=== PATIENT | female | born 1925 | race American Indian/Alaskan Native ===

== ENCOUNTER 2016-11-29 21:09 | Emergency (ER) | payer MEDICARE ==
[2016-11-29] MEDS ORDERED: NACL 0.9% 1000 ML 1,000 ML IV ONE (21:28)
[2016-11-29 21:53] LABS: Basophils % (Auto) 0.8 % (0.0-1.8); Eosinophils % (Auto) 0.3 % (0.0-4.3); Hematocrit 41.7 % (30.3-42.9); Hemoglobin 14.4 gm/dl (10.1-14.3); Mean Corpuscular HGB Conc 35 % (30-34); Mean Corpuscular Hemoglobin 34 pg (28-32); Mean Corpuscular Volume 98 fl (79-97); Red Blood Count 4.27 M/mm3 (3.65-5.03); Red Cell Distribution Width 13.9 % (13.2-15.2); White Blood Count 10.9 K/mm3 (4.5-11.0)
[2016-11-29 21:56] LABS: Platelet Count 186 K/mm3 (140-440)
[2016-11-29] MEDS ORDERED: GEODON IM PRN (21:57)
--- NOTE | 2016-11-29 21:58 | Emergency Department Report ---
ED General Adult HPI - General Chief complaint: GI Bleed Stated complaint: POSSIBLE GI BLEED Time Seen by Provider: 11/29/16 21:30 Source: EMS (ems notes not available at time of chart dictation), old records reviewed Mode of arrival: Stretcher Limitations: Physical Limitation, Other (patient is demented. Poor historian.) - History of Present Illness Initial comments: This is an 89-year-old female. She is previously unknown to me. Past medical history includes hypertension, dementia, PEG tube placement with GERD. He presents to the ER from a local intermediate with the complaint of vomiting dark coffee ground emesis. No further documentation is noted. Patient is currently a full code. Patient demented, poor historian, cannot describe exacerbating or erythema factors. Patient nonverbal, groans incomprehensibly. -: Sudden Quality: other (per hpi) Consistency: other (per hpi) Improves with: other (per hpi) Worsens with: other (per hpi) Associated Symptoms: other (per hpi) - Related Data Home Medications Medication Instructions Recorded Confirmed Last Taken Divalproex [Beth Rueda] 125 mg FEEDTUBE BID 08/22/14 10/02/14 10/02/14 Docusate Sodium [Colace ORAL LIQ] 50 mg FEEDTUBE DAILY 08/22/14 10/02/14 Donepezil [Aricept] 10 mg FEEDTUBE QPM 08/22/14 10/02/14 10/02/14 Lovastatin [Altoprev] 20 mg FEEDTUBE QPM 08/22/14 10/02/14 10/01/14 Memantine Xr [Namenda Xr] 14 mg FEEDTUBE DAILY 08/22/14 10/02/14 10/02/14 Multivit &Minerals/Ferrous Fum 9 mg FEEDTUBE DAILY 08/22/14 10/02/14 10/02/14 [Multivitamin Liquid] Omeprazole [PriLOSEC] 20 mg FEEDTUBE QDAY 08/22/14 10/02/14 10/02/14 Potassium Chloride [KCl 20 meq 20 meq FEEDTUBE QDAY 08/22/14 10/02/14 10/02/14 ORAL LIQ] Travoprost [Travatan Z 0.004%] 1 drop INTRAOCULA QHS 08/22/14 10/02/14 10/02/14 Triamter/Hctz 37.5-25 mg 1 tab FEEDTUBE QDAY 08/22/14 10/02/14 10/02/14 [Maxzide-25] Verapamil [Calan] 120 mg FEEDTUBE BID 08/22/14 10/02/14 10/02/14 Vit C/Ascorbate Ca/Ascorb Sod 500 mg FEEDTUBE BID 08/22/14 10/02/14 10/02/14 [Vitamin C 500 mg/15 ml Liquid] Allergies Allergy/AdvReac Type Severity Reaction Status Date / Time No Known Allergies Allergy Verified 08/22/14 21:22 ED Review of Systems ROS: Stated complaint: POSSIBLE GI BLEED Other details as noted in HPI Comment: Unobtainable due to pts medical conditions ED Past Medical Hx - Past Medical History Previous Medical History?: Yes Hx Hypertension: Yes Hx Diabetes: No Hx GERD: Yes Hx Dementia: Yes Hx HIV: No Additional medical history: dysphagia, Alz.,hypokalemia, glaucoma. pressure ulcer left foot. aphasia - Surgical History Past Surgical History?: Yes Additional Surgical History: PEG - Social History Smoking Status: Unknown if ever smoked - Medications Home Medications: Home Medications Medication Instructions Recorded Confirmed Last Taken Type Divalproex [Beth Rueda] 125 mg FEEDTUBE BID 08/22/14 10/02/14 10/02/14 History Docusate Sodium [Colace ORAL LIQ] 50 mg FEEDTUBE DAILY 08/22/14 10/02/14 History Donepezil [Aricept] 10 mg FEEDTUBE QPM 08/22/14 10/02/14 10/02/14 History Lovastatin [Altoprev] 20 mg FEEDTUBE QPM 08/22/14 10/02/14 10/01/14 History Memantine Xr [Namenda Xr] 14 mg FEEDTUBE DAILY 08/22/14 10/02/14 10/02/14 History Multivit &Minerals/Ferrous Fum 9 mg FEEDTUBE DAILY 08/22/14 10/02/14 10/02/14 History [Multivitamin Liquid] Omeprazole [PriLOSEC] 20 mg FEEDTUBE QDAY 08/22/14 10/02/14 10/02/14 History Potassium Chloride [KCl 20 meq 20 meq FEEDTUBE QDAY 08/22/14 10/02/14 10/02/14 History ORAL LIQ] Travoprost [Travatan Z 0.004%] 1 drop INTRAOCULA QHS 08/22/14 10/02/14 10/02/14 History Triamter/Hctz 37.5-25 mg 1 tab FEEDTUBE QDAY 08/22/14 10/02/14 10/02/14 History [Maxzide-25] Verapamil [Calan] 120 mg FEEDTUBE BID 08/22/14 10/02/14 10/02/14 History Vit C/Ascorbate Ca/Ascorb Sod 500 mg FEEDTUBE BID 08/22/14 10/02/14 10/02/14 History [Vitamin C 500 mg/15 ml Liquid] ED Physical Exam - General Limitations: Altered Mental Status, Physical Limitation General appearance: in no apparent distress, obese - Head Head exam: Present: atraumatic, normocephalic - Eye Eye exam: Present: normal appearance - ENT ENT exam: Present: normal exam, normal orophraynx, mucous membranes moist, normal external ear exam - Neck Neck exam: Present: normal inspection, full ROM. Absent: tenderness, meningismus - Respiratory Respiratory exam: Present: normal lung sounds bilaterally. Absent: respiratory distress, wheezes, rales, rhonchi, stridor, chest wall tenderness - Cardiovascular Cardiovascular Exam: Present: normal rhythm, tachycardia, normal heart sounds. Absent: systolic murmur, diastolic murmur, rubs, gallop - GI/Abdominal GI/Abdominal exam: Present: soft, normal bowel sounds, other (his feeding tube noted in the left upper quadrant. No redness, pus or streaking). Absent: distended, tenderness, guarding, rebound, rigid, pulsatile mass - Rectal Rectal exam: Present: normal inspection, normal rectal tone, heme (-) stool, other (minimal skin breakdown.) - Extremities Exam Extremities exam: Present: pedal edema, other (chronic wound noted to left heel) . Absent: normal inspection (contraction noted in left lower extremity) - Back Exam Back exam: Present: normal inspection. Absent: tenderness - Neurological Exam Neurological exam: Present: other (patient demented, poor historian) - Psychiatric Psychiatric exam: Present: normal affect, normal mood - Skin Skin exam: Present: warm, dry, intact, normal color. Absent: rash ED Course Vital Signs 11/29/16 11/29/16 11/29/16 21:17 21:19 21:21 Temperature 98.8 F Pulse Rate 115 H 114 H 110 H Respiratory 14 18 15 Rate Blood Pressure 111/54 Blood Pressure [Right] O2 Sat by Pulse 96 96 93 Oximetry 11/29/16 11/29/16 11/29/16 21:28 21:31 21:40 Temperature Pulse Rate 116 H 118 H Respiratory 17 24 Rate Blood Pressure 111/54 135/81 Blood Pressure 111/54 [Right] O2 Sat by Pulse 94 97 Oximetry 11/29/16 11/29/16 11/29/16 21:51 22:00 22:11 Temperature Pulse Rate 110 H 114 H 109 H Respiratory 17 19 15 Rate Blood Pressure 138/84 138/98 138/98 Blood Pressure [Right] O2 Sat by Pulse 94 96 96 Oximetry 11/29/16 11/29/16 11/29/16 22:21 22:30 22:41 Temperature Pulse Rate 118 H 113 H 105 H Respiratory 17 20 19 Rate Blood Pressure 137/77 146/79 146/79 Blood Pressure [Right] O2 Sat by Pulse 96 95 95 Oximetry 11/29/16 11/29/16 11/29/16 22:51 23:00 23:11 Temperature Pulse Rate 109 H 104 H 110 H Respiratory 18 17 21 Rate Blood Pressure 155/79 119/63 119/63 Blood Pressure [Right] O2 Sat by Pulse 97 93 96 Oximetry 11/29/16 11/30/16 11/30/16 23:21 00:00 00:11 Temperature Pulse Rate 107 H 101 H 100 H Respiratory 31 H 16 19 Rate Blood Pressure 157/82 151/85 151/85 Blood Pressure [Right] O2 Sat by Pulse 96 97 97 Oximetry 11/30/16 00:21 Temperature Pulse Rate 99 H Respiratory 17 Rate Blood Pressure 108/66 Blood Pressure [Right] O2 Sat by Pulse 96 Oximetry - Reevaluation(s) Reevaluation #1: 11/29/16 23:24 Differential diagnosis: Urinary tract infection, upper GI bleed, nonspecific nausea and vomiting, pneumonia Assessment and plan: Nonverbal elderly female with report of coffee-ground emesis. She is afebrile with unremarkable vital signs with the exception of slight tachycardia. There may be an anxiety component. Night exam and the patient anywhere, she yells nonsensically. She does this with the abdominal examination. Gastric occult blood is pending. Urinalysis not consistent with urinary tract infection. I doubt acute intra-abdominal disease, noncontrast CT scan of the abdomen and pelvis is pending. Reevaluation #2: 11/30/16 00:[address] scan negative. No active vomiting. Patient will be discharged, the percutaneous gastrostomy tube may be used for her typical feeds and medications, she can follow up with outpatient gastroenterology. Reevaluation #3: 11/30/16 00:50 No active vomiting. Tachycardia resolved. Gastric occult blood negative. Guaiac negative. Patient will be discharged. CT scan negative. ED Medical Decision Making - Lab Data Result diagrams: 11/29/16 21:40 11/29/16 21:40 - EKG Data 11/29/16 23:47 Sinus tachycardia, 105 bpm, atrial enlargement, poor progression, abnormal EKG, not morphologically consistent with STEMI. Normal axis. - Radiology Data Radiology results: report reviewed, image reviewed Noncontrast CAT scan the abdomen pelvis: Percutaneous gastrostomy tube in proper position. No evidence of bowel obstruction. No evidence of diverticulitis or colitis. No evidence of obstruction. appendix appears to be within normal limits. There is a nonspecific cyst or hemangioma noted in the right lobe of the liver. Critical care attestation.: If time is entered above; I have spent that time in minutes in the direct care of this critically ill patient, excluding procedure time. ED Disposition Clinical Impression: History of vomiting Disposition: DC/TX ANOTHER TYPE HEALTHCARE Is pt being admited?: No Does the pt Need Aspirin: No Condition: Stable Additional Instructions: Continue current outpatient medications. Follow up with a petroleum refinery operator or primary care doctor within the next week. Dr. Enrike Gonzalez is a local primary care doctor. Dr. Garcia is a local petroleum refinery operator. Return to the ER right away with fevers or chills, lethargy, irritability, projectile vomiting , change in mental status, inability to tolerate liquid feeds, bright red blood per rectum, hypotension/low blood pressure. Gastrostomy tube may be used for feeds and medication administration. Referrals: ENRIKE GONZALEZ MD [Primary Care Provider] - 3-5 Days SUSAN GARCIA MD [Staff Physician] - 3-5 Days Forms: Accompanied Note
[2016-11-29 22:01] LABS: INR 1.01 (0.87-1.13)
[2016-11-29 22:02] LABS: Partial Thromboplastin Time 20.6 Sec. (24.2-36.6)
[2016-11-29 22:13] LABS: Albumin 3.4 g/dL (3.9-5); Albumin/Globulin Ratio 0.8 %; BUN/Creatinine Ratio 13.63; Bilirubin,Total 0.3 mg/dL (0.1-1.2); Calcium 10.3 mg/dL (8.4-10.2); Chloride 97.5 mmol/L (98-107); Total Protein 7.9 g/dL (6.3-8.2)
[2016-11-29 22:25] LABS: Bacteria,Urine 1+ /HPF (Negative); Bilirubin,Urine NEG (Negative); Blood,Urine LG (Negative); Ketones,Urine NEG (Negative); Leukocyte Esterase,Urine TR (Negative); Mucus,Urine 1+ /HPF; Nitrite,Urine NEG (Negative); Protein,Urine <15 mg/dL mg/dL (Negative); RBC,Urine > 182.0 /HPF (0.0-6.0); Urobilinogen,Urine < 2.0 mg/dL (<2.0)
--- NOTE | 2016-11-29 23:57 | Cat Scan Report ---
FINAL REPORT PROCEDURE: CT ABDOMEN PELVIS WO CON TECHNIQUE: Computerized axial tomography of the abdomen and pelvis was performed without intravenous contrast. This study is performed without intravascular contrast material and its sensitivity for abdominal and pelvic pathology, including neoplasms, inflammation, abscess, free fluid, thrombosis, arterial dissection and infarction, is reduced compared with a contrast enhanced study. HISTORY: N/V COMPARISON: No prior studies are available for comparison. FINDINGS: Visualized lower thorax: No significant abnormality. Liver: There is a 12 millimeter cyst or hemangioma in the right lobe of the liver.. Spleen: Normal size and attenuation. Gallbladder and biliary system: There is sludge in the gallbladder.. Pancreas: Normal. Adrenals: Normal. Kidneys: There is no nephrolithiasis or obstructive uropathy.. GI tract: There is a percutaneous gastrostomy tube in proper position. There is no stomach or small bowel obstruction. There are diverticula of the colon. There is no diverticulitis or colitis. There is no colonic obstruction or mass. The appendix is normal.. Lymph nodes and mesentery: Normal. Vasculature: Normal. Bladder: Normal. Reproductive organs: There has been a hysterectomy.. Peritoneum: There is no ascites or free air, abscess or adenopathy.. Musculoskeletal structures: No significant abnormality. Other: None. IMPRESSION: There is a percutaneous gastrostomy tube in proper position. There is no stomach or small bowel obstruction. There are diverticula of the colon. There is no diverticulitis or colitis. There is no colonic obstruction or mass. The appendix is normal.. There has been a hysterectomy.. There is no ascites or free air, abscess or adenopathy. .
[2016-11-30 00:56] VITALS: BP 129/62
== END 2016-11-30 00:45 | disposition other institution (70) ==
LOC: ED 21:09
DX: R11.10 Vomiting, unspecified (principal); I10 Essential (primary) hypertension; K21.9 Gastro-esophageal reflux disease without esophagitis; F03.90 Unspecified dementia, unspecified severity, without behavioral disturbance, psychotic disturbance, mood disturbance, and anxiety; E87.6 Hypokalemia; H40.9 Unspecified glaucoma; Z90.710 Acquired absence of both cervix and uterus; R10.2 Pelvic and perineal pain
CPT/HCPCS: 36415; 51701; 74176; 80053; 81001; 82271; 83690; 85025; 85610; 85730; 86850; 86900; 86901; 87086; 93005; 93010; 96360; 96361; 96372; 99285; J3486; J7030

== ENCOUNTER 2017-02-26 12:52 | Emergency (ER) | payer MEDICARE ==
[2017-02-26] MEDS ORDERED: NACL 0.9% 500 ML 500 ML IV ONE (13:00)
[2017-02-26 13:34] LABS: Basophils % (Auto) 0.7 % (0.0-1.8); Eosinophils % (Auto) 2.4 % (0.0-4.3); Hematocrit 45.5 % (30.3-42.9); Hemoglobin 14.6 gm/dl (10.1-14.3); Mean Corpuscular HGB Conc 32 % (30-34); Mean Corpuscular Hemoglobin 32 pg (28-32); Mean Corpuscular Volume 98 fl (79-97); Platelet Count 231 K/mm3 (140-440); Red Blood Count 4.65 M/mm3 (3.65-5.03); Red Cell Distribution Width 14.1 % (13.2-15.2); White Blood Count 9.2 K/mm3 (4.5-11.0)
--- NOTE | 2017-02-26 13:50 | XRay Report ---
AP CHEST: HISTORY: Sepsis AP view of the chest demonstrates a normal mediastinal and cardiac contour with clear lungs and normal bony and soft tissue structures. IMPRESSION: Unremarkable AP chest.
[2017-02-26 14:00] LABS: Alanine Aminotransferase 19 units/L (7-56); Albumin 3.7 g/dL (3.9-5); Albumin/Globulin Ratio 0.8 %; Alkaline Phosphatase 110 units/L (35-129); BUN/Creatinine Ratio 26.25; Blood Urea Nitrogen 21 mg/dL (7-17); Calcium 10.6 mg/dL (8.4-10.2); Carbon Dioxide 28 mmol/L (22-30); Glucose 149 mg/dL (65-100); Total Protein 8.5 g/dL (6.3-8.2)
[2017-02-26 14:01] LABS: Anion Gap 19 mmol/L; Chloride 101.6 mmol/L (98-107); INR 1.07 (0.87-1.13); Sodium 145 mmol/L (137-145)
[2017-02-26] MEDS ORDERED: NACL ONE (16:39)
--- NOTE | 2017-02-26 17:41 | Cat Scan Report ---
FINAL REPORT EXAM: CT ABDOMEN PELVIS W CON HISTORY: vomiting, peg, coffe ground TECHNIQUE: CT of the abdomen and pelvis with intravenous contrast PRIORS: Comparison is dated November 29, 2016 FINDINGS: No acute abnormality is identified in the and visualized portion of the lung bases. A 1.3 centimeter low-density focus within right lobe of the liver is unchanged probable cyst or hemangioma. Gallbladder is nondistended. The spleen is normal in size and attenuation Again identified is a PEG tube. Distal end within the body of the stomach. No evidence for gastric distention. No evidence for small bowel or colonic distention. Numerous diverticula are present descending and sigmoid colon. No evidence for acute diverticulitis. Urinary bladder is unremarkable. IMPRESSION: PEG tube within the stomach. No evidence for gastric distention or small bowel obstruction Colonic diverticular disease. No evidence for acute diverticulitis Small low-density focus within the liver probable cyst or hemangioma
[2017-02-26 18:23] LABS: Bilirubin,Urine NEG (Negative); Blood,Urine NEG (Negative); Ketones,Urine NEG (Negative); Leukocyte Esterase,Urine NEG (Negative); Mucus,Urine FEW /HPF; Nitrite,Urine NEG (Negative); Urobilinogen,Urine < 2.0 mg/dL (<2.0)
--- NOTE | 2017-02-26 19:25 | Emergency Department Report ---
ED GI Bleed HPI - General Chief complaint: GI Bleed Stated complaint: EMESIS/POSS BLOOD Time Seen by Provider: 02/26/17 14:03 Source: EMS Mode of arrival: Stretcher Limitations: Other - History of Present Illness Initial comments: 89 yo female with a past medical history dementia, dysphagia requiring PEG placement, and hypertension presents to the hospital with coffee ground emesis from [facility]. Son at bedside and states this is patient's baseline mental status. Patient is nonverbal and unable to follow commands. No vomiting since arrival to the ED. Patient does not take anything by mouth intake all medication and liquids via PEG. Severity scale (0 -10): 0 - Related Data Home Medications Medication Instructions Recorded Confirmed Last Taken Divalproex Dr [Depakotrip Dr] 125 mg FEEDTUBE BID 08/22/14 10/02/14 10/02/14 Donepezil [Aricept] 10 mg FEEDTUBE QPM 08/22/14 10/02/14 10/02/14 Lovastatin [Altoprev] 20 mg FEEDTUBE QPM 08/22/14 10/02/14 10/01/14 Memantine Xr [Namenda Xr] 14 mg FEEDTUBE DAILY 08/22/14 10/02/14 10/02/14 Multivit &Minerals/Ferrous Fum 9 mg FEEDTUBE DAILY 08/22/14 10/02/14 10/02/14 [Multivitamin Liquid] Omeprazole [PriLOSEC] 20 mg FEEDTUBE QDAY 08/22/14 10/02/14 10/02/14 Potassium Chloride [KCl 20 meq 20 meq FEEDTUBE QDAY 08/22/14 10/02/14 10/02/14 ORAL LIQ] Verapamil [Calan] 120 mg FEEDTUBE BID 08/22/14 10/02/14 10/02/14 Vit C/Ascorbate Ca/Ascorb Sod 500 mg FEEDTUBE BID 08/22/14 10/02/14 10/02/14 [Vitamin C 500 mg/15 ml Liquid] Acetaminophen [Acetaminophen TAB] 2 tab FEEDTUBE Q8H PRN MDD 3000MG 02/26/1709/02 Unknown Hyoscyamine Subl [Levsin Sl 0.125 2 tab PO Q6H 02/26/17 02/26/17 Unknown TAB] Loperamide [Imodium] 2 mg PO PRN PRN MDD 4 capsules 02/26/17 02/26/17 Unknown Sennosides [Senna] 2 tab FEEDTUBE Q12H 02/26/17 02/26/17 Unknown Sodium Chloride [Sodium Chloride] 1 gm FEEDTUBE BID 02/26/17 02/26/17 Unknown Valproic Acid (As Sodium Salt) 125 mg FEEDTUBE BID 02/26/17 02/26/17 Unknown [Valproic Acid] Verapamil [Calan] 120 mg FEEDTUBE BID 02/26/17 02/26/17 Unknown clonazePAM [KlonoPIN] 0.25 mg PO BID 02/26/17 02/26/17 Unknown fentaNYL [Fentanyl] 1 patch TRANSDERMA Q72H 02/26/17 02/26/17 Unknown Previous Rx's Medication Instructions Recorded Last Taken Type Ondansetron [Zofran Oral Liq] 4 mg PERCUTANEO Q6HR PRN #20 dose 02/26/17 Unknown Rx Allergies Allergy/AdvReac Type Severity Reaction Status Date / Time No Known Allergies Allergy Verified 08/22/14 21:22 ED Review of Systems ROS: Stated complaint: EMESIS/POSS BLOOD Other details as noted in HPI Comment: Unobtainable due to pts medical conditions (nonverbal) ED Past Medical Hx - Past Medical History Hx Hypertension: Yes Hx Diabetes: No Hx GERD: Yes Hx Psychiatric Treatment: Yes (alzheimers, dementia, major depressive d/o) Hx Dementia: Yes Hx HIV: No Additional medical history: dysphagia, Alz.,hypokalemia, glaucoma. pressure ulcer left foot. aphasia, GERD, hyperlipidemia, contracture of the knee, constipation - Surgical History Additional Surgical History: PEG - Social History Smoking Status: Unknown if ever smoked - Medications Home Medications: Home Medications Medication Instructions Recorded Confirmed Last Taken Type Divalproex Dr [Depakote Dr] 125 mg FEEDTUBE BID 08/22/14 10/02/14 10/02/14 History Donepezil [Aricept] 10 mg FEEDTUBE QPM 08/22/14 10/02/14 10/02/14 History Lovastatin [Altoprev] 20 mg FEEDTUBE QPM 08/22/14 10/02/14 10/01/14 History Memantine Xr [Namenda Xr] 14 mg FEEDTUBE DAILY 08/22/14 10/02/14 10/02/14 History Multivit &Minerals/Ferrous Fum 9 mg FEEDTUBE DAILY 08/22/14 10/02/14 10/02/14 History [Multivitamin Liquid] Omeprazole [PriLOSEC] 20 mg FEEDTUBE QDAY 08/22/14 10/02/14 10/02/14 History Potassium Chloride [KCl 20 meq 20 meq FEEDTUBE QDAY 08/22/14 10/02/14 10/02/14 History ORAL LIQ] Verapamil [Calan] 120 mg FEEDTUBE BID 08/22/14 10/02/14 10/02/14 History Vit C/Ascorbate Ca/Ascorb Sod 500 mg FEEDTUBE BID 08/22/14 10/02/14 10/02/14 History [Vitamin C 500 mg/15 ml Liquid] Acetaminophen [Acetaminophen TAB] 2 tab FEEDTUBE Q8H PRN MDD 3000MG 02/26/1709/02 Unknown History Hyoscyamine Subl [Levsin Sl 0.125 2 tab PO Q6H 02/26/17 02/26/17 Unknown History TAB] Loperamide [Imodium] 2 mg PO PRN PRN MDD 4 capsules 02/26/17 02/26/17 Unknown History Ondansetron [Zofran Oral Liq] 4 mg PERCUTANEO Q6HR PRN #20 dose 02/26/17 Unknown Rx Sennosides [Senna] 2 tab FEEDTUBE Q12H 02/26/17 02/26/17 Unknown History Sodium Chloride [Sodium Chloride] 1 gm FEEDTUBE BID 02/26/17 02/26/17 Unknown History Valproic Acid (As Sodium Salt) 125 mg FEEDTUBE BID 02/26/17 02/26/17 Unknown History [Valproic Acid] Verapamil [Calan] 120 mg FEEDTUBE BID 02/26/17 02/26/17 Unknown History clonazePAM [KlonoPIN] 0.25 mg PO BID 02/26/17 02/26/17 Unknown History fentaNYL [Fentanyl] 1 patch TRANSDERMA Q72H 02/26/17 02/26/17 Unknown History ED Physical Exam - General Limitations: Other - Other Other exam information: General: Limited by chronic baseline mental status/dementia Head exam: Atraumatic Eyes exam: Normal appearance ENT: Moist mucous membrane Neck exam: Normal inspection Respiratory exam: Bilateral rhonchi Cardiovascular: Normal rate and rhythm Abdomen: Soft, nondistended, positive headache upper quadrant Rectal: Brown stool guaiac negative Extremity: Full range of motion normal inspection no deformity Back: Normal Inspection, full range of motion, no tenderness Neurologic: Opens eyes to stimulation, incomprehensible sounds, limited movement of all extremities ED Course Vital Signs 02/26/17 02/26/17 02/26/17 13:26 13:30 13:34 Pulse Rate Respiratory 20 Rate Blood Pressure 156/75 Blood Pressure [Left] O2 Sat by Pulse 98 99 Oximetry 02/26/17 02/26/17 02/26/17 14:00 14:30 15:00 Pulse Rate Respiratory Rate Blood Pressure 163/60 156/53 148/63 Blood Pressure [Left] O2 Sat by Pulse 100 97 100 Oximetry 02/26/17 15:30 Pulse Rate 100 H Respiratory 20 Rate Blood Pressure 152/73 Blood Pressure 152/73 [Left] O2 Sat by Pulse 95 Oximetry - Reevaluation(s) Reevaluation #1: 02/26/17 19:46 Patient received 500 mL normal saline 02/26/17 19:47 Zofran ordered prior to discharge/disposition. No vomiting in the ED 02/26/17 19:47 ED Medical Decision Making - Lab Data Result diagrams: 02/26/17 13:10 02/26/17 13:10 Lab Results 02/26/17 02/26/17 02/26/17 Range/Units 13:10 13:10 13:10 WBC 9.2 (4.5-11.0) K/mm3 RBC 4.65 (3.65-5.03) M/mm3 Hgb 14.6 H (10.1-14.3) gm/dl Hct 45.5 H (30.3-42.9) % MCV 98 H (79-97) fl MCH 32 (28-32) pg MCHC 32 (30-34) % RDW 14.1 (13.2-15.2) % Plt Count 231 (140-440) K/mm3 Lymph % (Auto) 19.6 (13.4-35.0) % Dawes % (Auto) 5.1 (0.0-7.3) % Eos % (Auto) 2.4 (0.0-4.3) % Baso % (Auto) 0.7 (0.0-1.8) % Lymph # 1.8 (1.2-5.4) K/mm3 Dawes # 0.5 (0.0-0.8) K/mm3 Eos # 0.2 (0.0-0.4) K/mm3 Baso # 0.1 (0.0-0.1) K/mm3 Seg Neutrophils % 72.2 H (40.0-70.0) % Seg Neutrophils # 6.6 (1.8-7.7) K/mm3 PT 13.8 (12.2-14.9) Sec. INR 1.07 (0.87-1.13) VBG pH (7.320-7.420) Sodium 145 (137-145) mmol/L Potassium 4.0 (3.6-5.0) mmol/L Chloride 101.6 (98-107) mmol/L Carbon Dioxide 28 (22-30) mmol/L Anion Gap 19 mmol/L BUN 21 H (7-17) mg/dL Creatinine 0.8 (0.7-1.2) mg/dL Estimated GFR > 60 ml/min BUN/Creatinine Ratio 26.25 % Glucose 149 H (65-100) mg/dL Lactic Acid (0.7-2.0) mmol/L Calcium 10.6 H (8.4-10.2) mg/dL Total Bilirubin 0.30 (0.1-1.2) mg/dL AST 38 (5-40) units/L ALT 19 (7-56) units/L Alkaline Phosphatase 110 (35-129) units/L Total Protein 8.5 H (6.3-8.2) g/dL Albumin 3.7 L (3.9-5) g/dL Albumin/Globulin Ratio 0.8 % Urine Color (Yellow) Urine Turbidity (Clear) Urine pH (5.0-7.0) Ur Specific [place] (1.003-1.030) Urine Protein (Negative) mg/dL Urine Glucose (UA) (Negative) mg/dL Urine Ketones (Negative) mg/dL Urine Blood (Negative) Urine Nitrite (Negative) Urine Bilirubin (Negative) Urine Urobilinogen (<2.0) mg/dL Ur Leukocyte Esterase (Negative) Urine WBC (Auto) (0.0-6.0) /HPF Urine RBC (Auto) (0.0-6.0) /HPF U Epithel Cells (Auto) (0-13.0) /HPF Urine Mucus /HPF 02/26/17 02/26/17 02/26/17 Range/Units 13:10 13:10 15:48 WBC (4.5-11.0) K/mm3 RBC (3.65-5.03) M/mm3 Hgb (10.1-14.3) gm/dl Hct (30.3-42.9) % MCV (79-97) fl MCH (28-32) pg MCHC (30-34) % RDW (13.2-15.2) % Plt Count (140-440) K/mm3 Lymph % (Auto) (13.4-35.0) % Dawes % (Auto) (0.0-7.3) % Eos % (Auto) (0.0-4.3) % Baso % (Auto) (0.0-1.8) % Lymph # (1.2-5.4) K/mm3 Dawes # (0.0-0.8) K/mm3 Eos # (0.0-0.4) K/mm3 Baso # (0.0-0.1) K/mm3 Seg Neutrophils % (40.0-70.0) % Seg Neutrophils # (1.8-7.7) K/mm3 PT (12.2-14.9) Sec. INR (0.87-1.13) VBG pH 7.405 (7.320-7.420) Sodium (137-145) mmol/L Potassium (3.6-5.0) mmol/L Chloride (98-107) mmol/L Carbon Dioxide (22-30) mmol/L Anion Gap mmol/L BUN (7-17) mg/dL Creatinine (0.7-1.2) mg/dL Estimated GFR ml/min BUN/Creatinine Ratio % Glucose (65-100) mg/dL Lactic Acid 2.40 H* 2.00 (0.7-2.0) mmol/L Calcium (8.4-10.2) mg/dL Total Bilirubin (0.1-1.2) mg/dL AST (5-40) units/L ALT (7-56) units/L Alkaline Phosphatase (35-129) units/L Total Protein (6.3-8.2) g/dL Albumin (3.9-5) g/dL Albumin/Globulin Ratio % Urine Color (Yellow) Urine Turbidity (Clear) Urine pH (5.0-7.0) Ur Specific [place] (1.003-1.030) Urine Protein (Negative) mg/dL Urine Glucose (UA) (Negative) mg/dL Urine Ketones (Negative) mg/dL Urine Blood (Negative) Urine Nitrite (Negative) Urine Bilirubin (Negative) Urine Urobilinogen (<2.0) mg/dL Ur Leukocyte Esterase (Negative) Urine WBC (Auto) (0.0-6.0) /HPF Urine RBC (Auto) (0.0-6.0) /HPF U Epithel Cells (Auto) (0-13.0) /HPF Urine Mucus /HPF /09/02 Range/Units 18:08 WBC (4.5-11.0) K/mm3 RBC (3.65-5.03) M/mm3 Hgb (10.1-14.3) gm/dl Hct (30.3-42.9) % MCV (79-97) fl MCH (28-32) pg MCHC (30-34) % RDW (13.2-15.2) % Plt Count (140-440) K/mm3 Lymph % (Auto) (13.4-35.0) % Dawes % (Auto) (0.0-7.3) % Eos % (Auto) (0.0-4.3) % Baso % (Auto) (0.0-1.8) % Lymph # (1.2-5.4) K/mm3 Dawes # (0.0-0.8) K/mm3 Eos # (0.0-0.4) K/mm3 Baso # (0.0-0.1) K/mm3 Seg Neutrophils % (40.0-70.0) % Seg Neutrophils # (1.8-7.7) K/mm3 PT (12.2-14.9) Sec. INR (0.87-1.13) VBG pH (7.320-7.420) Sodium (137-145) mmol/L Potassium (3.6-5.0) mmol/L Chloride (98-107) mmol/L Carbon Dioxide (22-30) mmol/L Anion Gap mmol/L BUN (7-17) mg/dL Creatinine (0.7-1.2) mg/dL Estimated GFR ml/min BUN/Creatinine Ratio % Glucose (65-100) mg/dL Lactic Acid (0.7-2.0) mmol/L Calcium (8.4-10.2) mg/dL Total Bilirubin (0.1-1.2) mg/dL AST (5-40) units/L ALT (7-56) units/L Alkaline Phosphatase (35-129) units/L Total Protein (6.3-8.2) g/dL Albumin (3.9-5) g/dL Albumin/Globulin Ratio % Urine Color Yellow (Yellow) Urine Turbidity Clear (Clear) Urine pH 7.0 (5.0-7.0) Ur Specific [place] 1.025 (1.003-1.030) Urine Protein 100 mg/dl (Negative) mg/dL Urine Glucose (UA) Neg (Negative) mg/dL Urine Ketones Neg (Negative) mg/dL Urine Blood Neg (Negative) Urine Nitrite Neg (Negative) Urine Bilirubin Neg (Negative) Urine Urobilinogen < 2.0 (<2.0) mg/dL Ur Leukocyte Esterase Neg (Negative) Urine WBC (Auto) 1.0 (0.0-6.0) /HPF Urine RBC (Auto) 3.0 (0.0-6.0) /HPF U Epithel Cells (Auto) 2.0 (0-13.0) /HPF Urine Mucus Few /HPF - EKG Data -: EKG Interpreted by Me (nsr rate 97, no stemi) - Radiology Data Radiology results: report reviewed CT abdomen and pelvis IV contrast: PEG tube in stomach. No evidence a gastric destruction or small bowel obstruction. Colonic diverticular disease. No acute diverticulitis. Probable liver cyst versus hemangioma Chest x-ray: Unremarkable AP chest - Medical Decision Making No signs of acute abnormality identified. Patient has not had any vomiting in the ED. Patient will be discharged home. - Differential Diagnosis gastritis, obstruction, PUD, GI bleed, infection, UTI, diverticulitis Critical Care Time: No Critical care attestation.: If time is entered above; I have spent that time in minutes in the direct care of this critically ill patient, excluding procedure time. ED Disposition Clinical Impression: Vomiting, Dementia, S/P percutaneous endoscopic gastrostomy (PEG) tube placement Disposition: DC-01 TO HOME OR SELFCARE Is pt being admited?: No Does the pt Need Aspirin: No Condition: Stable Instructions: Acute Nausea and Vomiting (ED) Additional Instructions: Use Zofran as needed for nausea vomiting. Return if symptoms worsen. Prescriptions: Ondansetron [Zofran Oral Liq] 4 mg PERCUTANEO Q6HR PRN #20 dose PRN Reason: Nausea And Vomiting Referrals: PRIMARY CAREMD [Primary Care Provider] - 3-5 Days KIEL DEY MD [Staff Physician] - 3-5 Days (GI ) Forms: Accompanied Note Time of Disposition: 19:43
[2017-02-26] MEDS ORDERED: ZOFRAN IV ONE (19:46)
[2017-02-26 23:28] VITALS: BP 165/72
== END 2017-02-26 23:40 | disposition home or self-care (01) ==
LOC: ED 12:52
DX: F03.90 Unspecified dementia, unspecified severity, without behavioral disturbance, psychotic disturbance, mood disturbance, and anxiety (principal); R11.10 Vomiting, unspecified; R10.30 Lower abdominal pain, unspecified; I10 Essential (primary) hypertension; K21.9 Gastro-esophageal reflux disease without esophagitis; E78.00 Pure hypercholesterolemia, unspecified; Z93.1 Gastrostomy status
CPT/HCPCS: 36415; 71010; 74177; 80053; 81001; 82140; 82271; 82805; 85025; 85610; 87040; 87086; 93005; 93010; 96374; 99285; J2405; J7040; Q9967

== ENCOUNTER 2017-06-17 22:09 | Emergency (ER) | payer MEDICARE ==
--- NOTE | 2017-06-17 22:58 | XRay Report ---
FINAL REPORT PROCEDURE: XR CHEST 1V AP TECHNIQUE: Chest radiograph anteroposterior view. CPT 68653 HISTORY: sob, congestion COMPARISON: No prior studies are available for comparison. FINDINGS: Heart: Normal. Mediastinum/Vessels: Normal. Lungs/Pleural space: Normal. Bony thorax: No acute osseous abnormality. Life support devices: None. IMPRESSION: No acute cardiopulmonary abnormality.
[2017-06-17 23:30] LABS: ISTAT Base Excess 7; ISTAT HCO3 31.3; ISTAT PCO2 46.8 (35-45); ISTAT PH 7.433 (7.35-7.45); ISTAT PO2 58 (80-105); ISTAT SO2 90; ISTAT TCO2 33
[2017-06-17 23:37] LABS: Basophils % (Auto) 1.2 % (0.0-1.8); Eosinophils % (Auto) 0.8 % (0.0-4.3); Hematocrit 36.7 % (30.3-42.9); Hemoglobin 12.3 gm/dl (10.1-14.3); Mean Corpuscular HGB Conc 33 % (30-34); Mean Corpuscular Hemoglobin 33 pg (28-32); Mean Corpuscular Volume 97 fl (79-97); Platelet Count 172 K/mm3 (140-440); Red Blood Count 3.77 M/mm3 (3.65-5.03); Red Cell Distribution Width 14.9 % (13.2-15.2); White Blood Count 10.2 K/mm3 (4.5-11.0)
[2017-06-17 23:44] LABS: Anion Gap 17 mmol/L; BUN/Creatinine Ratio 27.77; Blood Urea Nitrogen 25 mg/dL (7-17); Calcium 9.9 mg/dL (8.4-10.2); Carbon Dioxide 29 mmol/L (22-30); Chloride 97.1 mmol/L (98-107); Glucose 153 mg/dL (65-100); Potassium 3.7 mmol/L (3.6-5.0); Sodium 139 mmol/L (137-145)
--- NOTE | 2017-06-18 00:52 | Emergency Department Report ---
ED Shortness of Breath HPI - General Chief Complaint: Dyspnea/Respdistress Stated Complaint: CHEST CONGESTION Time Seen by Provider: 06/17/17 22:23 Source: EMS, old records reviewed Mode of arrival: Stretcher Limitations: Altered Mental Status, Physical Limitation - History of Present Illness Initial Comments: 89-year-old female with a past medical history Alzheimer's dementia, diabetes, GERD, hypertension, PEG tube placement, and chronic debility presents to the hospital with complaints of cough, chest congestion, and wet sounding lungs 1 day as per [facility] staff. No reports of fever. Due to patient's baseline mental status she is unable to provide history of present illness due to advanced dementia. shelter vitals included temperature 98.2. BP 135/80. Respiratory rate of 20, and pulse of 107. No other history of present illness available at this time. - Related Data Home Medications Medication Instructions Recorded Confirmed Last Taken Divalproex [Beth Rueda] 125 mg FEEDTUBE BID 08/22/14 05/17/17 10/02/14 Donepezil [Aricept] 10 mg FEEDTUBE QPM 08/22/14 05/17/17 10/02/14 Lovastatin [Altoprev] 20 mg FEEDTUBE QPM 08/22/14 05/17/17 10/01/14 Memantine Xr [Namenda Xr] 14 mg FEEDTUBE DAILY 08/22/14 05/17/17 10/02/14 Multivit &Minerals/Ferrous Fum 9 mg FEEDTUBE DAILY 08/22/14 05/17/17 10/02/14 [Multivitamin Liquid] Omeprazole [PriLOSEC] 20 mg FEEDTUBE QDAY 08/22/14 05/17/17 10/02/14 Vit C/Ascorbate Ca/Ascorb Sod 500 mg FEEDTUBE BID 08/22/14 05/17/17 10/02/14 [Vitamin C 500 mg/15 ml Liquid] Acetaminophen [Acetaminophen TAB] 2 tab FEEDTUBE Q8H PRN MDD 3000MG 02/26/17 Unknown Hyoscyamine Subl [Levsin Sl 0.125 2 tab PO Q6H 02/26/17 05/17/17 Unknown TAB] Loperamide [Imodium] 2 mg PO PRN PRN MDD 4 capsules 02/26/17 05/17/17 Unknown Sennosides [Senna] 2 tab FEEDTUBE Q12H 02/26/17 05/17/17 Unknown Sodium Chloride 1 gm FEEDTUBE BID 02/26/17 05/17/17 Unknown Valproic Acid (As Sodium Salt) 125 mg FEEDTUBE BID 02/26/17 05/17/17 Unknown [Valproic Acid] Verapamil [Calan] 120 mg FEEDTUBE BID 02/26/17 05/17/17 Unknown clonazePAM [KlonoPIN] 0.25 mg PO BID 02/26/17 05/17/17 Unknown fentaNYL [Fentanyl] 1 patch TRANSDERMA Q72H 02/26/17 05/17/17 Unknown Maxzide-25 37.5 mg FEEDTUBE DAILY 05/17/17 05/17/17 Unknown [place] 5-325 mg TAB 5 - 325 mg FEEDTUBE Q8HR 05/17/17 05/17/17 Unknown Scopolamine [Transderm-Scop] 1 each TD Q3D 05/17/17 05/17/17 Unknown Verapamil HCl [Verapamil ER] 120 mg PO BID 05/17/17 05/17/17 Unknown Previous Rx's Medication Instructions Recorded Last Taken Type Ondansetron [Zofran ORAL LIQ] 4 mg PERCUTANEO Q6HR PRN #20 dose 02/26/17 Unknown Rx Allergies Allergy/AdvReac Type Severity Reaction Status Date / Time No Known Allergies Allergy Verified 06/17/17 22:14 ED Review of Systems ROS: Stated complaint: CHEST CONGESTION Other details as noted in HPI Comment: Unobtainable due to pts medical conditions ED Past Medical Hx - Past Medical History Previous Medical History?: Yes Hx Hypertension: Yes Hx Diabetes: No Hx GERD: Yes Hx Psychiatric Treatment: Yes (alzheimers, dementia, major depressive d/o) Hx Dementia: Yes Hx HIV: No Additional medical history: dysphagia,hypokalemia, glaucoma. pressure ulcer left foot. aphasia, GERD, hyperlipidemia, contracture of the knee, constipation. recent pneumonia - Surgical History Past Surgical History?: Yes Additional Surgical History: PEG - Social History Smoking Status: Unknown if ever smoked Substance Use Type: None - Medications Home Medications: Home Medications Medication Instructions Recorded Confirmed Last Taken Type Divalproex Dr [Depakote Dr] 125 mg FEEDTUBE BID 08/22/14 05/17/17 10/02/14 History Donepezil [Aricept] 10 mg FEEDTUBE QPM 08/22/14 05/17/17 10/02/14 History Lovastatin [Altoprev] 20 mg FEEDTUBE QPM 08/22/14 05/17/17 10/01/14 History Memantine Xr [Namenda Xr] 14 mg FEEDTUBE DAILY 08/22/14 05/17/17 10/02/14 History Multivit &Minerals/Ferrous Fum 9 mg FEEDTUBE DAILY 08/22/14 05/17/17 10/02/14 History [Multivitamin Liquid] Omeprazole [PriLOSEC] 20 mg FEEDTUBE QDAY 08/22/14 05/17/17 10/02/14 History Vit C/Ascorbate Ca/Ascorb Sod 500 mg FEEDTUBE BID 08/22/14 05/17/17 10/02/14 History [Vitamin C 500 mg/15 ml Liquid] Acetaminophen [Acetaminophen TAB] 2 tab FEEDTUBE Q8H PRN MDD 3000MG 02/26/17 Unknown History Hyoscyamine Subl [Levsin Sl 0.125 2 tab PO Q6H 02/26/17 05/17/17 Unknown History TAB] Loperamide [Imodium] 2 mg PO PRN PRN MDD 4 capsules 02/26/17 05/17/17 Unknown History Ondansetron [Zofran ORAL LIQ] 4 mg PERCUTANEO Q6HR PRN #20 dose 02/26/17 Unknown Rx Sennosides [Senna] 2 tab FEEDTUBE Q12H 02/26/17 05/17/17 Unknown History Sodium Chloride 1 gm FEEDTUBE BID 02/26/17 05/17/17 Unknown History Valproic Acid (As Sodium Salt) 125 mg FEEDTUBE BID 02/26/17 05/17/17 Unknown History [Valproic Acid] Verapamil [Calan] 120 mg FEEDTUBE BID 02/26/17 05/17/17 Unknown History clonazePAM [KlonoPIN] 0.25 mg PO BID 02/26/17 05/17/17 Unknown History fentaNYL [Fentanyl] 1 patch TRANSDERMA Q72H 02/26/17 05/17/17 Unknown History Maxzide-25 37.5 mg FEEDTUBE DAILY 05/17/17 05/17/17 Unknown History [place] 5-325 mg TAB 5 - 325 mg FEEDTUBE Q8HR 05/17/17 05/17/17 Unknown History Scopolamine [Transderm-Scop] 1 each TD Q3D 05/17/17 05/17/17 Unknown History Verapamil HCl [Verapamil ER] 120 mg PO BID 05/17/17 05/17/17 Unknown History ED Physical Exam - General Limitations: Altered Mental Status, Physical Limitation - Other Other exam information: General: No acute distress Head exam: Atraumatic, normocephalic Eyes exam: Normal appearance ENT: Moist mucous membrane Neck exam: Normal inspection Respiratory exam: No tachypnea or accessory muscle use. Bilateral rhonchi Cardiovascular: Normal rate and rhythm Abdomen: Soft, nondistended, and nontender, with normal bowel sounds, no rebound, or guarding. Positive PEG tube previous lower abdomen surgical scars noted. Extremity: Contraction to all extremities Back: Normal Inspection Neurologic: Nonverbal, does not follow commands, does not make eye contact, positive spontaneous movement of extremities but limited secondary to contractures 10 Psychiatric: normal affect, normal mood Skin: Chronic left foot ulcer ED Course Vital Signs 06/17/17 06/17/17 06/17/17 22:30 22:45 22:46 Temperature 97.5 F L Pulse Rate 96 H 92 H 96 H Respiratory 16 19 20 Rate Blood Pressure 142/71 145/74 Blood Pressure 142/71 [Right] O2 Sat by Pulse 97 97 93 Oximetry 06/17/17 06/17/17 06/17/17 23:00 23:15 23:30 Temperature Pulse Rate 88 84 78 Respiratory 18 17 14 Rate Blood Pressure 141/69 155/68 144/57 Blood Pressure [Right] O2 Sat by Pulse 91 92 99 Oximetry 06/17/17 06/18/17 23:46 00:16 Temperature Pulse Rate 94 H 87 Respiratory 23 18 Rate Blood Pressure 164/65 165/80 Blood Pressure [Right] O2 Sat by Pulse 95 98 Oximetry - Reevaluation(s) Reevaluation #1: 06/18/17 00:53 Suction attempted however, minimal secretions obtained. - Consultations Consultation #1: 06/18/17 00:[address] Hooper physician for the [facility]. I informed him that only abnormality identified is this PO2 less than 60 and I recommended oxygen at the [facility]. Informed that no signs of fever, chest x-ray negative, patient in no acute distress. I suspect that patient has a lot of upper airway secretion causing audible sounds on auscultation. Patient will be sent back to the [facility] ED Medical Decision Making - Lab Data Result diagrams: 06/17/17 22:59 06/17/17 22:59 Lab Results 06/17/17 06/17/17 06/17/17 Range/Units 22:59 22:59 22:59 WBC 10.2 (4.5-11.0) K/mm3 RBC 3.77 (3.65-5.03) M/mm3 Hgb 12.3 (10.1-14.3) gm/dl Hct 36.7 (30.3-42.9) % MCV 97 (79-97) fl MCH 33 H (28-32) pg MCHC 33 (30-34) % RDW 14.9 (13.2-15.2) % Plt Count 172 (140-440) K/mm3 Lymph % (Auto) 19.0 (13.4-35.0) % [place] % (Auto) 8.2 H (0.0-7.3) % Eos % (Auto) 0.8 (0.0-4.3) % Baso % (Auto) 1.2 (0.0-1.8) % Lymph # 1.9 (1.2-5.4) K/mm3 [place] # 0.8 (0.0-0.8) K/mm3 Eos # 0.1 (0.0-0.4) K/mm3 Baso # 0.1 (0.0-0.1) K/mm3 Seg Neutrophils % 70.8 H (40.0-70.0) % Seg Neutrophils # 7.2 (1.8-7.7) K/mm3 POC ABG pH (7.35-7.45) POC ABG pCO2 (35-45) POC ABG pO2 (80-105) POC ABG HCO3 POC ABG Total CO2 POC ABG O2 Sat POC ABG Base Excess VBG pH (7.320-7.420) FiO2 % Sodium 139 (137-145) mmol/L Potassium 3.7 (3.6-5.0) mmol/L Chloride 97.1 L (98-107) mmol/L Carbon Dioxide 29 (22-30) mmol/L Anion Gap 17 mmol/L BUN 25 H (7-17) mg/dL Creatinine 0.9 (0.7-1.2) mg/dL Estimated GFR > 60 ml/min BUN/Creatinine Ratio 27.77 % Glucose 153 H (65-100) mg/dL Lactic Acid 1.80 (0.7-2.0) mmol/L Calcium 9.9 (8.4-10.2) mg/dL NT-Pro-B Natriuret Pep 765.0 (0-900) pg/mL 06/17/17 06/17/17 Range/Units 22:59 23:27 WBC (4.5-11.0) K/mm3 RBC (3.65-5.03) M/mm3 Hgb (10.1-14.3) gm/dl Hct (30.3-42.9) % MCV (79-97) fl MCH (28-32) pg MCHC (30-34) % RDW (13.2-15.2) % Plt Count (140-440) K/mm3 Lymph % (Auto) (13.4-35.0) % [place] % (Auto) (0.0-7.3) % Eos % (Auto) (0.0-4.3) % Baso % (Auto) (0.0-1.8) % Lymph # (1.2-5.4) K/mm3 [place] # (0.0-0.8) K/mm3 Eos # (0.0-0.4) K/mm3 Baso # (0.0-0.1) K/mm3 Seg Neutrophils % (40.0-70.0) % Seg Neutrophils # (1.8-7.7) K/mm3 POC ABG pH 7.433 (7.35-7.45) POC ABG pCO2 46.8 H (35-45) POC ABG pO2 58 L (80-105) POC ABG HCO3 31.3 POC ABG Total CO2 33 POC ABG O2 Sat 90 POC ABG Base Excess 7 VBG pH 7.379 (7.320-7.420) FiO2 21 % Sodium (137-145) mmol/L Potassium (3.6-5.0) mmol/L Chloride (98-107) mmol/L Carbon Dioxide (22-30) mmol/L Anion Gap mmol/L BUN (7-17) mg/dL Creatinine (0.7-1.2) mg/dL Estimated GFR ml/min BUN/Creatinine Ratio % Glucose (65-100) mg/dL Lactic Acid (0.7-2.0) mmol/L Calcium (8.4-10.2) mg/dL NT-Pro-B Natriuret Pep (0-900) pg/mL - EKG Data -: EKG Interpreted by Me (sinus rhythm with a lot of artifact rate [address] elevation HI, no T-wave) - Radiology Data Radiology results: report reviewed (chest x-ray portable: No acute findings) - Medical Decision Making No signs of pneumonia, leukocytosis, fever, cardiac instability. Supplemental oxygen recommended on discharge. Patient appears to have a lot of upper airway secretions. She is currently on scopolamine patch for secretions. [facility] - Differential Diagnosis pneumonia, bronchitis, CHF, airway secretions Critical Care Time: No Critical care attestation.: If time is entered above; I have spent that time in minutes in the direct care of this critically ill patient, excluding procedure time. ED Disposition Clinical Impression: Congestion of upper airway, Dementia, Hypoxia Disposition: DC-01 TO HOME OR SELFCARE Is pt being admited?: No Does the pt Need Aspirin: No Condition: Stable Instructions: Using Oxygen at Home (ED), Cold Symptoms (ED) Additional Instructions: Home oxygen 1-2 L recommended. Case discussed with Dr. Hooper. Please return if symptoms worsen. Referrals: PRIMARY CARE, [Primary Care Provider] - 24 Hours Time of Disposition: 00:55
[2017-06-18 06:33] VITALS: BP 132/90
== END 2017-06-18 06:33 | disposition home or self-care (01) ==
LOC: ED 22:09
DX: R09.02 Hypoxemia (principal); R09.81 Nasal congestion; F03.90 Unspecified dementia, unspecified severity, without behavioral disturbance, psychotic disturbance, mood disturbance, and anxiety; I10 Essential (primary) hypertension; K21.9 Gastro-esophageal reflux disease without esophagitis; F32.9 Major depressive disorder, single episode, unspecified
CPT/HCPCS: 36415; 71010; 80048; 82140; 82803; 82805; 83880; 85025; 87040; 93005; 93010

== ENCOUNTER 2017-07-07 08:38 | Inpatient (IN) | payer MEDICARE ==
[2017-07-07] MEDS ORDERED: NACL 0.9% 500 ML 500 ML IV ONE (08:52)
[2017-07-07 09:25] LABS: Basophils % (Auto) 0.2 % (0.0-1.8); Mean Corpuscular HGB Conc 30 % (30-34); Mean Corpuscular Hemoglobin 31 pg (28-32); Mean Corpuscular Volume 104 fl (79-97); Platelet Count 225 K/mm3 (140-440); Red Blood Count 3.92 M/mm3 (3.65-5.03); Red Cell Distribution Width 15.8 % (13.2-15.2); White Blood Count 15.5 K/mm3 (4.5-11.0)
[2017-07-07 09:27] LABS: Hematocrit 40.8 % (30.3-42.9); Hemoglobin 12.2 gm/dl (10.1-14.3)
[2017-07-07 09:29] LABS: Bacteria,Urine 1+ /HPF (Negative); Bilirubin,Urine NEG (Negative); Blood,Urine NEG (Negative); Ketones,Urine NEG (Negative); Leukocyte Esterase,Urine NEG (Negative); Mucus,Urine FEW /HPF; Nitrite,Urine NEG (Negative); RBC,Urine < 1.0 /HPF (0.0-6.0); Urobilinogen,Urine < 2.0 mg/dL (<2.0)
[2017-07-07 09:31] LABS: Alanine Aminotransferase 10 units/L (7-56); Albumin 2.8 g/dL (3.9-5); Albumin/Globulin Ratio 0.5 %; Alkaline Phosphatase 139 units/L (35-129); BUN/Creatinine Ratio 28; Blood Urea Nitrogen 44 mg/dL (7-17); Calcium 10.1 mg/dL (8.4-10.2); Carbon Dioxide 27 mmol/L (22-30); Total Protein 7.9 g/dL (6.3-8.2)
[2017-07-07 09:34] LABS: Glucose 750 mg/dL (65-100)
[2017-07-07 10:08] LABS: INR 1.28 (0.87-1.13); Partial Thromboplastin Time 36.3 Sec. (24.2-36.6)
--- NOTE | 2017-07-07 10:12 | XRay Report ---
AP CHEST :07/07/17 09:11 CLINICAL: Fever and sepsis. COMPARISON:06/17/17 FINDINGS: New linear right upper lobe opacities radiating to the right hilum. The right hilum is more prominent than on the prior exam. Bilateral reticular perihilar interstitial opacities are unchanged. No pleural effusion. Stable cardiomegaly. No tubes or lines. IMPRESSION: New right upper lobe pneumonia versus atelectasis. Mild cardiomegaly but no CHF.
[2017-07-07] MEDS ORDERED: VANCOMYCIN/NS 1 GM/250 ML 1 GM/250 ML BAG IV ONE (10:15)
[2017-07-07] MEDS ORDERED: LEVAQUIN 750MG/150ML 750 MG/150 ML BAG IV ONE (10:15)
[2017-07-07] MEDS ORDERED: ZOSYN/NS 4.5GM/100ML 4.5 GM/100 ML VIAL IV ONE (10:15)
--- NOTE | 2017-07-07 10:20 | Emergency Department Report ---
ED General Adult HPI - General Chief complaint: Altered Mental Status Stated complaint: DKA Time Seen by Provider: 07/07/17 08:50 Source: EMS, old records reviewed Mode of arrival: Stretcher Limitations: Altered Mental Status, Physical Limitation - History of Present Illness Initial comments: 89-year-old woman from [facility] with a history of end-stage co- morbidities including advanced dementia, functional quadriplegia, contractures, bedbound state, GERD, hypertension, PEG tube, depression and pressure ulcers who presents with respiratory distress, worsening altered mental status and uncontrolled blood sugars. Patient gives no history. Daughter in law at bedside, Mrs. Ayala. Patient's son Mr. Ayala is the stated legal power of checker loader. Patient was recently seen at [facility] last week and discharged to hospice. Patient was a hospice for 3 days but then hospice was rescinded and patient was sent to [facility] one week ago. Family expresses that they still decided patient be a DO NOT RESUSCITATE patient however, [facility] states that patient has full code. long-term vital signs 98.8, BP 124/86, respiratory rate 28, pulse 128. O2 sat approximately 90% on 2 L nasal cannula - Related Data Home Medications Medication Instructions Recorded Confirmed Last Taken Divalproex [Beth Rueda] 125 mg FEEDTUBE BID 08/22/14 05/17/17 10/02/14 Donepezil [Aricept] 10 mg FEEDTUBE QPM 08/22/14 05/17/17 10/02/14 Lovastatin [Altoprev] 20 mg FEEDTUBE QPM 08/22/14 05/17/17 10/01/14 Memantine Xr [Namenda Xr] 14 mg FEEDTUBE DAILY 08/22/14 05/17/17 10/02/14 Multivit-Minerals/Ferrous Fum 9 mg FEEDTUBE DAILY 08/22/14 05/17/17 10/02/14 [Multivitamin Liquid] Omeprazole [PriLOSEC] 20 mg FEEDTUBE QDAY 08/22/14 05/17/17 10/02/14 Vit C/Ascorbate Calcium,Sodium 500 mg FEEDTUBE BID 08/22/14 05/17/17 10/02/14 [Vitamin C 500 mg/15 ml Liquid] Acetaminophen [Acetaminophen TAB] 2 tab FEEDTUBE Q8H PRN MDD 3000MG 02/26/17 Unknown Hyoscyamine Subl [Levsin Sl 0.125 2 tab PO Q6H 02/26/17 05/17/17 Unknown TAB] Loperamide [Imodium] 2 mg PO PRN PRN MDD 4 capsules 02/26/17 05/17/17 Unknown Sennosides [Senna] 2 tab FEEDTUBE Q12H 02/26/17 05/17/17 Unknown Sodium Chloride 1 gm FEEDTUBE BID 02/26/17 05/17/17 Unknown Valproic Acid (As Sodium Salt) 125 mg FEEDTUBE BID 02/26/17 05/17/17 Unknown [Valproic Acid] Verapamil [Calan] 120 mg FEEDTUBE BID 02/26/17 05/17/17 Unknown clonazePAM [KlonoPIN] 0.25 mg PO BID 02/26/17 05/17/17 Unknown fentaNYL [Fentanyl] 1 patch TRANSDERMA Q72H 02/26/17 05/17/17 Unknown Maxzide-25 37.5 mg FEEDTUBE DAILY 05/17/17 05/17/17 Unknown [place] 5-325 mg TAB 5 - 325 mg FEEDTUBE Q8HR 05/17/17 05/17/17 Unknown Scopolamine [Transderm-Scop] 1 each TD Q3D 05/17/17 05/17/17 Unknown Verapamil HCl [Verapamil ER] 120 mg PO BID 05/17/17 05/17/17 Unknown Previous Rx's Medication Instructions Recorded Last Taken Type Ondansetron [Zofran ORAL LIQ] 4 mg PERCUTANEO Q6HR PRN #20 dose 02/26/17 Unknown Rx Allergies Allergy/AdvReac Type Severity Reaction Status Date / Time No Known Allergies Allergy Verified 06/17/17 22:14 ED Review of Systems ROS: Stated complaint: DKA Other details as noted in HPI Comment: Unobtainable due to pts medical conditions ED Past Medical Hx - Past Medical History Hx Hypertension: Yes Hx Diabetes: No Hx GERD: Yes Hx Psychiatric Treatment: Yes (alzheimers, dementia, major depressive d/o) Hx Dementia: Yes Hx HIV: No Additional medical history: dysphagia,hypokalemia, glaucoma. pressure ulcer left foot. aphasia, GERD, hyperlipidemia, contracture of the knee, constipation. recent pneumonia - Surgical History Additional Surgical History: PEG - Social History Smoking Status: Unknown if ever smoked Substance Use Type: None - Medications Home Medications: Home Medications Medication Instructions Recorded Confirmed Last Taken Type Divalproex [Beth Rueda] 125 mg FEEDTUBE BID 08/22/14 05/17/17 10/02/14 History Donepezil [Aricept] 10 mg FEEDTUBE QPM 08/22/14 05/17/17 10/02/14 History Lovastatin [Altoprev] 20 mg FEEDTUBE QPM 08/22/14 05/17/17 10/01/14 History Memantine Xr [Namenda Xr] 14 mg FEEDTUBE DAILY 08/22/14 05/17/17 10/02/14 History Multivit-Minerals/Ferrous Fum 9 mg FEEDTUBE DAILY 08/22/14 05/17/17 10/02/14 History [Multivitamin Liquid] Omeprazole [PriLOSEC] 20 mg FEEDTUBE QDAY 08/22/14 05/17/17 10/02/14 History Vit C/Ascorbate Calcium,Sodium 500 mg FEEDTUBE BID 08/22/14 05/17/17 10/02/14 History [Vitamin C 500 mg/15 ml Liquid] Acetaminophen [Acetaminophen TAB] 2 tab FEEDTUBE Q8H PRN MDD 3000MG 02/26/17 Unknown History Hyoscyamine Subl [Levsin Sl 0.125 2 tab PO Q6H 02/26/17 05/17/17 Unknown History TAB] Loperamide [Imodium] 2 mg PO PRN PRN MDD 4 capsules 02/26/17 05/17/17 Unknown History Ondansetron [Zofran ORAL LIQ] 4 mg PERCUTANEO Q6HR PRN #20 dose 02/26/17 Unknown Rx Sennosides [Senna] 2 tab FEEDTUBE Q12H 02/26/17 05/17/17 Unknown History Sodium Chloride 1 gm FEEDTUBE BID 02/26/17 05/17/17 Unknown History Valproic Acid (As Sodium Salt) 125 mg FEEDTUBE BID 02/26/17 05/17/17 Unknown History [Valproic Acid] Verapamil [Calan] 120 mg FEEDTUBE BID 02/26/17 05/17/17 Unknown History clonazePAM [KlonoPIN] 0.25 mg PO BID 02/26/17 05/17/17 Unknown History fentaNYL [Fentanyl] 1 patch TRANSDERMA Q72H 02/26/17 05/17/17 Unknown History Maxzide-25 37.5 mg FEEDTUBE DAILY 05/17/17 05/17/17 Unknown History [place] 5-325 mg TAB 5 - 325 mg FEEDTUBE Q8HR 05/17/17 05/17/17 Unknown History Scopolamine [Transderm-Scop] 1 each TD Q3D 05/17/17 05/17/17 Unknown History Verapamil HCl [Verapamil ER] 120 mg PO BID 05/17/17 05/17/17 Unknown History ED Physical Exam - General Limitations: No Limitations - Other Other exam information: General: Limited by chronic dementia and functional quadriplegia Head exam: Atraumatic Eyes exam: Normal appearance ENT: Dry mucous membranes Neck exam: Normal inspection Respiratory exam: Bilateral rhonchi, mild tachypnea, no accessory muscle use Cardiovascular: Mild tachycardia Abdomen: Soft, nondistended, and nontender, with normal bowel sounds, no rebound, or guarding. Positive PEG tube and lower abdominal surgical scar Extremity: Full range of motion normal inspection no deformity Back: Normal Inspection, full range of motion, no tenderness Neurologic: Patient does not open her eyes, speak, or follow directions upon command. Minimal spontaneous movement of the extremities. [id number] states mental status is at patient's baseline ED Course Vital Signs 07/07/17 07/07/17 07/07/17 08:42 08:55 09:00 Temperature 99.0 F Pulse Rate 105 H 99 H 99 H Respiratory 26 H 26 H 28 H Rate Blood Pressure 123/73 159/82 Blood Pressure 159/82 [Left] O2 Sat by Pulse 88 91 99 Oximetry 07/07/17 07/07/17 10:00 10:35 Temperature 98.3 F Pulse Rate 104 H Respiratory 26 H 23 Rate Blood Pressure Blood Pressure 140/57 [Left] O2 Sat by Pulse 99 98 Oximetry - Reevaluation(s) Reevaluation #1: 07/07/17 Patient is treated with normal saline, supplemental oxygenation and antibiotics for pneumonia ordered include Zosyn, Levaquin, and vancomycin for healthcare associated pneumonia. Patient likely has aspiration pneumonia given her right upper lobe infiltrate ED Medical Decision Making - Lab Data Result diagrams: 07/07/17 08:59 07/07/17 08:59 Lab Results 07/07/17 07/07/17 07/07/17 Range/Units 08:54 08:59 08:59 WBC 15.5 H (4.5-11.0) K/mm3 RBC 3.92 (3.65-5.03) M/mm3 Hgb 12.2 (10.1-14.3) gm/dl Hct 40.8 (30.3-42.9) % MCV 104 H (79-97) fl MCH 31 (28-32) pg MCHC 30 (30-34) % RDW 15.8 H (13.2-15.2) % Plt Count 225 (140-440) K/mm3 Lymph % (Auto) 7.6 L (13.4-35.0) % [place] % (Auto) 4.7 (0.0-7.3) % Eos % (Auto) 0.0 (0.0-4.3) % Baso % (Auto) 0.2 (0.0-1.8) % Lymph # 1.2 (1.2-5.4) K/mm3 [place] # 0.7 (0.0-0.8) K/mm3 Eos # 0.0 (0.0-0.4) K/mm3 Baso # 0.0 (0.0-0.1) K/mm3 Seg Neutrophils % 87.5 H (40.0-70.0) % Seg Neutrophils # 13.5 H (1.8-7.7) K/mm3 PT 16.6 H (12.2-14.9) Sec. INR 1.28 H (0.87-1.13) APTT 36.3 (24.2-36.6) Sec. VBG pH (7.320-7.420) Sodium (137-145) mmol/L Potassium (3.6-5.0) mmol/L Chloride (98-107) mmol/L Carbon Dioxide (22-30) mmol/L Anion Gap mmol/L BUN (7-17) mg/dL Creatinine (0.7-1.2) mg/dL Estimated GFR ml/min BUN/Creatinine Ratio % Glucose (65-100) mg/dL Lactic Acid (0.7-2.0) mmol/L Calcium (8.4-10.2) mg/dL Total Bilirubin (0.1-1.2) mg/dL AST (5-40) units/L ALT (7-56) units/L Alkaline Phosphatase (35-129) units/L Total Creatine Kinase (30-135) units/L CK-MB (CK-2) (0.0-4.0) ng/mL CK-MB (CK-2) Rel Index (0-4) Troponin T (0.00-0.029) ng/mL Total Protein (6.3-8.2) g/dL Albumin (3.9-5) g/dL Albumin/Globulin Ratio % Triglycerides (2-149) mg/dL Cholesterol (50-199) mg/dL LDL Cholesterol Direct (50-130) mg/dL HDL Cholesterol (40-59) mg/dL Cholesterol/HDL Ratio % Urine Color Yellow (Yellow) Urine Turbidity Clear (Clear) Urine pH 7.0 (5.0-7.0) Ur Specific [place] 1.025 (1.003-1.030) Urine Protein 100 mg/dl (Negative) mg/dL Urine Glucose (UA) >=500 (Negative) mg/dL Urine Ketones Neg (Negative) mg/dL Urine Blood Neg (Negative) Urine Nitrite Neg (Negative) Urine Bilirubin Neg (Negative) Urine Urobilinogen < 2.0 (<2.0) mg/dL Ur Leukocyte Esterase Neg (Negative) Urine WBC (Auto) 1.0 (0.0-6.0) /HPF Urine RBC (Auto) < 1.0 (0.0-6.0) /HPF U Epithel Cells (Auto) < 1.0 (0-13.0) /HPF Urine Bacteria (Auto) 1+ (Negative) /HPF Urine Mucus Few /HPF 07/07/17 07/07/17 07/07/17 Range/Units 08:59 08:59 08:59 WBC (4.5-11.0) K/mm3 RBC (3.65-5.03) M/mm3 Hgb (10.1-14.3) gm/dl Hct (30.3-42.9) % MCV (79-97) fl MCH (28-32) pg MCHC (30-34) % RDW (13.2-15.2) % Plt Count (140-440) K/mm3 Lymph % (Auto) (13.4-35.0) % [place] % (Auto) (0.0-7.3) % Eos % (Auto) (0.0-4.3) % Baso % (Auto) (0.0-1.8) % Lymph # (1.2-5.4) K/mm3 [place] # (0.0-0.8) K/mm3 Eos # (0.0-0.4) K/mm3 Baso # (0.0-0.1) K/mm3 Seg Neutrophils % (40.0-70.0) % Seg Neutrophils # (1.8-7.7) K/mm3 PT (12.2-14.9) Sec. INR (0.87-1.13) APTT (24.2-36.6) Sec. VBG pH 7.387 (7.320-7.420) Sodium 163 H* (137-145) mmol/L Potassium 4.3 (3.6-5.0) mmol/L Chloride 119.6 H (98-107) mmol/L Carbon Dioxide 27 (22-30) mmol/L Anion Gap 21 mmol/L BUN 44 H (7-17) mg/dL Creatinine 1.6 H (0.7-1.2) mg/dL Estimated GFR 37 ml/min BUN/Creatinine Ratio 28 % Glucose 750 H* (65-100) mg/dL Lactic Acid 3.00 H* (0.7-2.0) mmol/L Calcium 10.1 (8.4-10.2) mg/dL Total Bilirubin 0.40 (0.1-1.2) mg/dL AST 12 (5-40) units/L ALT 10 (7-56) units/L Alkaline Phosphatase 139 H (35-129) units/L Total Creatine Kinase (30-135) units/L CK-MB (CK-2) (0.0-4.0) ng/mL CK-MB (CK-2) Rel Index (0-4) Troponin T (0.00-0.029) ng/mL Total Protein 7.9 (6.3-8.2) g/dL Albumin 2.8 L (3.9-5) g/dL Albumin/Globulin Ratio 0.5 % Triglycerides (2-149) mg/dL Cholesterol (50-199) mg/dL LDL Cholesterol Direct (50-130) mg/dL HDL Cholesterol (40-59) mg/dL Cholesterol/HDL Ratio % Urine Color (Yellow) Urine Turbidity (Clear) Urine pH (5.0-7.0) Ur Specific [place] (1.003-1.030) Urine Protein (Negative) mg/dL Urine Glucose (UA) (Negative) mg/dL Urine Ketones (Negative) mg/dL Urine Blood (Negative) Urine Nitrite (Negative) Urine Bilirubin (Negative) Urine Urobilinogen (<2.0) mg/dL Ur Leukocyte Esterase (Negative) Urine WBC (Auto) (0.0-6.0) /HPF Urine RBC (Auto) (0.0-6.0) /HPF U Epithel Cells (Auto) (0-13.0) /HPF Urine Bacteria (Auto) (Negative) /HPF Urine Mucus /HPF 07/07/17 Range/Units 08:59 WBC (4.5-11.0) K/mm3 RBC (3.65-5.03) M/mm3 Hgb (10.1-14.3) gm/dl Hct (30.3-42.9) % MCV (79-97) fl MCH (28-32) pg MCHC (30-34) % RDW (13.2-15.2) % Plt Count (140-440) K/mm3 Lymph % (Auto) (13.4-35.0) % [place] % (Auto) (0.0-7.3) % Eos % (Auto) (0.0-4.3) % Baso % (Auto) (0.0-1.8) % Lymph # (1.2-5.4) K/mm3 [place] # (0.0-0.8) K/mm3 Eos # (0.0-0.4) K/mm3 Baso # (0.0-0.1) K/mm3 Seg Neutrophils % (40.0-70.0) % Seg Neutrophils # (1.8-7.7) K/mm3 PT (12.2-14.9) Sec. INR (0.87-1.13) APTT (24.2-36.6) Sec. VBG pH (7.320-7.420) Sodium (137-145) mmol/L Potassium (3.6-5.0) mmol/L Chloride (98-107) mmol/L Carbon Dioxide (22-30) mmol/L Anion Gap mmol/L BUN (7-17) mg/dL Creatinine (0.7-1.2) mg/dL Estimated GFR ml/min BUN/Creatinine Ratio % Glucose (65-100) mg/dL Lactic Acid (0.7-2.0) mmol/L Calcium (8.4-10.2) mg/dL Total Bilirubin (0.1-1.2) mg/dL AST (5-40) units/L ALT (7-56) units/L Alkaline Phosphatase (35-129) units/L Total Creatine Kinase 39 (30-135) units/L CK-MB (CK-2) 2.0 (0.0-4.0) ng/mL CK-MB (CK-2) Rel Index 5.1 H (0-4) Troponin T 0.082 H (0.00-0.029) ng/mL Total Protein (6.3-8.2) g/dL Albumin (3.9-5) g/dL Albumin/Globulin Ratio % Triglycerides 106 (2-149) mg/dL Cholesterol 128 (50-199) mg/dL LDL Cholesterol Direct 53 (50-130) mg/dL HDL Cholesterol 54 (40-59) mg/dL Cholesterol/HDL Ratio 2.37 % Urine Color (Yellow) Urine Turbidity (Clear) Urine pH (5.0-7.0) Ur Specific [place] (1.003-1.030) Urine Protein (Negative) mg/dL Urine Glucose (UA) (Negative) mg/dL Urine Ketones (Negative) mg/dL Urine Blood (Negative) Urine Nitrite (Negative) Urine Bilirubin (Negative) Urine Urobilinogen (<2.0) mg/dL Ur Leukocyte Esterase (Negative) Urine WBC (Auto) (0.0-6.0) /HPF Urine RBC (Auto) (0.0-6.0) /HPF U Epithel Cells (Auto) (0-13.0) /HPF Urine Bacteria (Auto) (Negative) /HPF Urine Mucus /HPF - EKG Data -: EKG Interpreted by Me (sinus rate 97, no ST elevation AR, LVH. q wave inferior) - EKG Data When compared to previous EKG there are: no significant change (06/17/17) - Radiology Data Radiology results: report reviewed Chest x-ray: New right upper lobe pneumonia versus atelectasis. Mild cardiomegaly but no CHF - Medical Decision Making Plan to admit patient to the hospital for pneumonia treatment as well as hyperglycemia. No signs of DKA at this time. Mild lactic acid elevation. Patient has acute renal insufficiency likely secondary to dehydration given her elevated BUN and sodium levels. - Differential Diagnosis sepsis, pneumonia, UTI, DKA Critical Care Time: No Critical care attestation.: If time is entered above; I have spent that time in minutes in the direct care of this critically ill patient, excluding procedure time. ED Disposition Clinical Impression: Pneumonia, Dementia, Hyperglycemia, Acute renal insufficiency, Elevated troponin, Hypernatriuria, Elevated lactic acid level Disposition: OP ADMIT IP TO THIS HOSP Is pt being admited?: Yes Condition: Stable Time of Disposition: 10:19 (Dr Stuart/hosp)
[2017-07-07 10:23] LABS: Anion Gap 21 mmol/L; Chloride 119.6 mmol/L (98-107); Potassium 4.3 mmol/L (3.6-5.0)
[2017-07-07 10:28] LABS: Sodium 163 mmol/L (137-145)
[2017-07-07] MEDS ORDERED: REGLAN IV PRN (10:59)
[2017-07-07] MEDS ORDERED: VANCOMYCIN PHARMACY TO DOSE IV SCH (11:00)
[2017-07-07] MEDS ORDERED: TYLENOL FEEDTUBE PRN (11:03)
--- NOTE | 2017-07-07 11:18 | History and Physical Report ---
History of Present Illness Date of examination: 07/07/17 Chief complaint: AMS Source of this history is the chart due to Dementia Daughter in law, Mrs. Ayala at bedside. History of present illness: Patient is a 89-year-old woman from [facility] with a history of end -stage co- morbidities including advanced dementia, functional quadriplegia, contractures, bedbound state, GERD, hypertension, PEG tube, depression and pressure ulcers who presents with worsening altered mental status and uncontrolled blood sugars. Patient gives no history. Daughter in law at bedside, Mrs. Ayala. Patient's son Mr. Ayala is the stated legal power of commercial attorney. Patient is DO NOT RESUSCITATE and was put in hospice recently but [facility] paperwork states that she is a full code; therefore, sent her here to [facility] with uncontrolled blood sugars and worsening mental status. Her son Mr. Ayala is currently dear hunting with poor cellular medical records receptionist per . Patient was just here in this hospital from May 17 to 2016 due to PEG tube replacement. She was just discharged from [facility] to Hospice about a week ago, no records are available Past medical/surgical history: as hpi or unobtainable. Social history: Negative for tobacco, alcohol or drugs per chart Family history: Unobtainable due to mental status RS: Unobtainable due to mental status Medications and Allergies Allergies Allergy/AdvReac Type Severity Reaction Status Date / Time No Known Allergies Allergy Verified 06/17/17 22:14 Home Medications Medication Instructions Recorded Confirmed Last Taken Type Divalproex Dr [Beth Rueda] 125 mg FEEDTUBE BID 08/22/14 05/17/17 10/02/14 History Donepezil [Aricept] 10 mg FEEDTUBE QPM 08/22/14 05/17/17 10/02/14 History Lovastatin [Altoprev] 20 mg FEEDTUBE QPM 08/22/14 05/17/17 10/01/14 History Memantine Xr [Namenda Xr] 14 mg FEEDTUBE DAILY 08/22/14 05/17/17 10/02/14 History Multivit-Minerals/Ferrous Fum 9 mg FEEDTUBE DAILY 08/22/14 05/17/17 10/02/14 History [Multivitamin Liquid] Omeprazole [PriLOSEC] 20 mg FEEDTUBE QDAY 08/22/14 05/17/17 10/02/14 History Vit C/Ascorbate Calcium,Sodium 500 mg FEEDTUBE BID 08/22/14 05/17/17 10/02/14 History [Vitamin C 500 mg/15 ml Liquid] Acetaminophen [Acetaminophen TAB] 2 tab FEEDTUBE Q8H PRN MDD 3000MG 02/26/17 Unknown History Hyoscyamine Subl [Levsin Sl 0.125 2 tab PO Q6H 02/26/17 05/17/17 Unknown History TAB] Loperamide [Imodium] 2 mg PO PRN PRN MDD 4 capsules 02/26/17 05/17/17 Unknown History Ondansetron [Zofran ORAL LIQ] 4 mg PERCUTANEO Q6HR PRN #20 dose 02/26/17 Unknown Rx Sennosides [Senna] 2 tab FEEDTUBE Q12H 02/26/17 05/17/17 Unknown History Sodium Chloride 1 gm FEEDTUBE BID 02/26/17 05/17/17 Unknown History Valproic Acid (As Sodium Salt) 125 mg FEEDTUBE BID 02/26/17 05/17/17 Unknown History [Valproic Acid] Verapamil [Calan] 120 mg FEEDTUBE BID 02/26/17 05/17/17 Unknown History clonazePAM [KlonoPIN] 0.25 mg PO BID 02/26/17 05/17/17 Unknown History fentaNYL [Fentanyl] 1 patch TRANSDERMA Q72H 02/26/17 05/17/17 Unknown History Maxzide-25 37.5 mg FEEDTUBE DAILY 05/17/17 05/17/17 Unknown History [place] 5-325 mg TAB 5 - 325 mg FEEDTUBE Q8HR 05/17/17 05/17/17 Unknown History Scopolamine [Transderm-Scop] 1 each TD Q3D 05/17/17 05/17/17 Unknown History Verapamil HCl [Verapamil ER] 120 mg PO BID 05/17/17 05/17/17 Unknown History Active Meds: Active Medications Acetaminophen (Tylenol) mg FEEDTUBE Q8H PRN PRN Reason: FEVER/PAIN Divalproex Sodium (Depakote Dr) 125 mg FEEDTUBE BID BOBBY Donepezil HCl (Aricept) 10 mg FEEDTUBE QPM BOBBY Heparin Sodium (Porcine) (Heparin) 5,000 unit SUB-Q Q12HR BOBBY Levofloxacin/Dextrose (Levaquin 750mg/150ml) 750 mg in 150 mls @ 100 mls/hr IV ONCE ONE Stop: 07/07/17 11:44 Last Admin: 07/07/17 11:07 Dose: 100 mls/hr Levofloxacin/Dextrose (Levaquin 750mg/150ml) 750 mg in 150 mls @ 100 mls/hr IV Q48H BOBBY PRN Reason: Protocol Piperacillin Sod/Tazobactam Sod (Zosyn/Ns 2.25 Gm/50ml) 2.25 gm in 50 mls @ 100 mls/hr IV Q8HR BOBBY PRN Reason: Protocol Dextrose (D5w) 1,000 mls @ 100 mls/hr IV DIRECT BOBBY Vancomycin HCl 1,250 mg/ (Sodium Chloride) 262.5 mls @ 166.667 mls/hr IV Q24H BOBBY Metoclopramide HCl (Reglan) 10 mg IV Q8H PRN PRN Reason: Nausea And Vomiting Miscellaneous Medication (Lovastatin [Altoprev]) 20 mg FEEDTUBE QPM BOBBY Miscellaneous Medication (Memantine Xr) 14 mg FEEDTUBE DAILY [facility] Miscellaneous Medication (Omeprazole [Prilosec]) 20 mg FEEDTUBE QDAY BOBBY Miscellaneous Medication (Valproic Acid (As Sodium Salt) [Valproic Acid]) 125 mg FEEDTUBE BID BOBBY Pantoprazole Sodium (Protonix) 40 mg PO QDAY BOBBY Scopolamine (Transderm-Scop) 1 each TD Q3D BOBBY Vancomycin HCl (Vancomycin Pharmacy To Dose) 1 each IV PKCONSULT BOBBY PRN Reason: Protocol Verapamil HCl (Calan) 120 mg FEEDTUBE BID BOBBY Exam - Physical Exam Narrative exam: GEN chronically debilitated but acutely ill-appearing, somnolent, will moan to manipulation and pain, HEENT: NCAT, eomi and pupils do react NECK: Neck is flexed down but supple no adenopathy, no thyromegaly, no JVD CVS/HEART: Regular tachycardia NORMAL S1S2, NO JVD, pulses present bilaterally CHEST/LUNGS: Bilateral crackles Symmetrical chest expansion, reduced air entry bilaterally GI/Abdomen: soft, NTND, good bowel sounds, no guarding or rebound, PEG tube in place /Bladder: no suprapubic tenderness, no CVA or paraspinal tenderness EXT/Skin: No foot at the open heeled pressure ulcer, she has pressures ulcer left knee , stage 3 MSK: Contractures 4 Neuro: CN 2-12 grossly intact, does not follow commands Psych: Somnolent - Constitutional Vitals: Temp Pulse Resp BP Pulse Ox 98.3 F 104 H 23 140/57 98 07/07/17 10:00 07/07/17 10:00 07/07/17 10:35 07/07/17 10:00 07/07/17 10:35 Results - Labs CBC & Chem 7: 07/07/17 08:59 07/07/17 08:59 Labs: Abnormal lab results 07/07/17 07/07/17 07/07/17 Range/Units 08:59 08:59 08:59 WBC 15.5 H (4.5-11.0) K/mm3 MCV 104 H (79-97) fl RDW 15.8 H (13.2-15.2) % Lymph % (Auto) 7.6 L (13.4-35.0) % Seg Neutrophils % 87.5 H (40.0-70.0) % Seg Neutrophils # 13.5 H (1.8-7.7) K/mm3 PT 16.6 H (12.2-14.9) Sec. INR 1.28 H (0.87-1.13) Sodium 163 H* (137-145) mmol/L Chloride 119.6 H (98-107) mmol/L BUN 44 H (7-17) mg/dL Creatinine 1.6 H (0.7-1.2) mg/dL Glucose 750 H* (65-100) mg/dL Lactic Acid (0.7-2.0) mmol/L Alkaline Phosphatase 139 H (35-129) units/L CK-MB (CK-2) Rel Index (0-4) Troponin T (0.00-0.029) ng/mL Albumin 2.8 L (3.9-5) g/dL 07/07/17 07/07/17 Range/Units 08:59 08:59 WBC (4.5-11.0) K/mm3 MCV (79-97) fl RDW (13.2-15.2) % Lymph % (Auto) (13.4-35.0) % Seg Neutrophils % (40.0-70.0) % Seg Neutrophils # (1.8-7.7) K/mm3 PT (12.2-14.9) Sec. INR (0.87-1.13) Sodium (137-145) mmol/L Chloride (98-107) mmol/L BUN (7-17) mg/dL Creatinine (0.7-1.2) mg/dL Glucose (65-100) mg/dL Lactic Acid 3.00 H* (0.7-2.0) mmol/L Alkaline Phosphatase (35-129) units/L CK-MB (CK-2) Rel Index 5.1 H (0-4) Troponin T 0.082 H (0.00-0.029) ng/mL Albumin (3.9-5) g/dL Assessment and Plan Patient is a 89-year-old woman from [facility] with a history of end -stage co- morbidities including advanced dementia, functional quadriplegia, contractures, bedbound state, GERD, hypertension, PEG tube, depression and pressure ulcers who presents with worsening altered mental status and uncontrolled blood sugars. Patient gives no history. Daughter in law at bedside, Mrs. Ayala. Patient's son Mr. Ayala is the stated legal power of commercial attorney. Patient is DO NOT RESUSCITATE and was put in hospice recently but [facility] paperwork states that she is a full code; therefore, sent her here to [facility] with uncontrolled blood sugars and worsening mental status. Her son Mr. Ayala is currently dear hunting with poor cellular medical records receptionist per . Patient was just here in this hospital from May 17 to 2016 due to PEG tube replacement. Patient also had a [facility] ED visit June 17 for suspected aspiration pneumonia and was sent back to detention. She was just discharged from [facility] to Hospice about a week ago, no records are available. Chest X-ray shows new right upper lobe pneumonia versus atelectasis, mild cardiomegaly but no CHF. -Acute hypoxic respiratory failure due to pneumonia: Treat with oxygen, she would IV antibiotics and monitoring IV vancomycin, renal dose Levaquin and IV Zosyn -Right upper lobe aspiration pneumonia: Broad-spectrum and double cover for pseudomonas because of recent hospitalizations, renal dose -Sepsis pneumonia with black acidosis: Repeat lactic acid, give IV fluids but no normal saline because her sodium level is extremely high -Acute metabolic encephalopathy due to above: Treat above -Uncontrolled type 2 diabetes mellitus with hyperglycemia: As slightly scaly assessment consult dietitian, patient on tube feedings -Acute renal failure due to vasomotor nephropathy, last creatinine creatinine was normal: get a renal ultrasound and consulted nephrology -Hypernatremia: Treat with D5 W, and free water flushes to PEG tube also consult nephrology, repeat in a.m. -Suspected severe malnutrition: Consult dietitian -Functional quadriplegia due to severe end-stage dementia: I agree with hospice -Pressure ulcers present on admission: Consult wound care -DVT prophylaxis: Subcutaneous heparin -GI prophylaxis: PPI Home medication reconciliations reviewed and completed DO NOT RESUSCITATE, Son needs to come and sign DNR paperwork once he gets back from deer hunting; Daughter in law mentions that we have DNR paperwork here from recent admission, will try to obtain The high probability of a clinically significant, sudden or life threatening deterioration of the [neurologic,cardiac] system(s) required my full and direct attention, intervention and personal management. The aggregate critical care time was [40] minutes. This time is in addition to time spent performing reported procedures but includes the following: [x] Data Review and interpretation [x] Patient assessment and monitoring of vital signs [x] Documentation [x] Medication orders and management
--- NOTE | 2017-07-07 11:41 | Consultation ---
History of Present Illness - Reason for Consult Consult date: 07/07/17 acute renal failure, hypernatremia Requesting physician: SEEMA URIBE - History of Present Illness Patient is a 89-year-old woman from [facility] with a history of end -stage co- morbidities including advanced dementia, functional quadriplegia, contractures, bedbound state, GERD, hypertension, PEG tube, depression and pressure ulcers who presents with worsening altered mental status and uncontrolled blood sugars. Patient gives no history. Daughter in law at bedside, Mrs. Ayala. Patient's son Mr. Ayala is the stated legal power of attorney recruiter. Patient is DO NOT RESUSCITATE and was put in hospice recently but [facility] paperwork states that she is a full code; therefore, sent her here to [facility] with uncontrolled blood sugars and worsening mental status. Her son Mr. Ayala is currently dear hunting with poor cellular catia designer per . Patient was just here in this hospital from May 17 to 2016 due to PEG tube replacement. She was just discharged from [facility] to Hospice about a week ago, no records are available Past medical/surgical history: as hpi or unobtainable. Social history: Negative for tobacco, alcohol or drugs per chart Family history: Unobtainable due to mental status RS: Unobtainable due to mental status Medications and Allergies Allergies Allergy/AdvReac Type Severity Reaction Status Date / Time No Known Allergies Allergy Verified 06/17/17 22:14 Home Medications Medication Instructions Recorded Confirmed Last Taken Type Divalproex Dr [Depakote Dr] 125 mg FEEDTUBE BID 08/22/14 05/17/17 10/02/14 History Donepezil [Aricept] 10 mg FEEDTUBE QPM 08/22/14 05/17/17 10/02/14 History Lovastatin [Altoprev] 20 mg FEEDTUBE QPM 08/22/14 05/17/17 10/01/14 History Memantine Xr [Namenda Xr] 14 mg FEEDTUBE DAILY 08/22/14 05/17/17 10/02/14 History Multivit-Minerals/Ferrous Fum 9 mg FEEDTUBE DAILY 08/22/14 05/17/17 10/02/14 History [Multivitamin Liquid] Omeprazole [PriLOSEC] 20 mg FEEDTUBE QDAY 12/02/2805/17/17 10/02/14 History Vit C/Ascorbate Calcium,Sodium 500 mg FEEDTUBE BID 08/22/14 05/17/17 10/02/14 History [Vitamin C 500 mg/15 ml Liquid] Acetaminophen [Acetaminophen TAB] 2 tab FEEDTUBE Q8H PRN MDD 3000MG 02/26/17 Unknown History Hyoscyamine Subl [Levsin Sl 0.125 2 tab PO Q6H 02/26/17 05/17/17 Unknown History TAB] Loperamide [Imodium] 2 mg PO PRN PRN MDD 4 capsules 02/26/17 05/17/17 Unknown History Ondansetron [Zofran ORAL LIQ] 4 mg PERCUTANEO Q6HR PRN #20 dose 02/26/17 Unknown Rx Sennosides [Senna] 2 tab FEEDTUBE Q12H 02/26/17 05/17/17 Unknown History Sodium Chloride 1 gm FEEDTUBE BID 02/26/17 05/17/17 Unknown History Valproic Acid (As Sodium Salt) 125 mg FEEDTUBE BID 02/26/17 05/17/17 Unknown History [Valproic Acid] Verapamil [Calan] 120 mg FEEDTUBE BID 02/26/17 05/17/17 Unknown History clonazePAM [KlonoPIN] 0.25 mg PO BID 02/26/17 05/17/17 Unknown History fentaNYL [Fentanyl] 1 patch TRANSDERMA Q72H 02/26/17 05/17/17 Unknown History Maxzide-25 37.5 mg FEEDTUBE DAILY 05/17/17 05/17/17 Unknown History [place] 5-325 mg TAB 5 - 325 mg FEEDTUBE Q8HR 05/17/17 05/17/17 Unknown History Scopolamine [Transderm-Scop] 1 each TD Q3D 05/17/17 05/17/17 Unknown History Verapamil HCl [Verapamil ER] 120 mg PO BID 05/17/17 05/17/17 Unknown History Active Meds: Active Medications Acetaminophen (Tylenol) 650 mg FEEDTUBE Q8H PRN PRN Reason: FEVER/PAIN Divalproex Sodium (Depakote Dr) 125 mg FEEDTUBE BID BOBBY Donepezil HCl (Aricept) 10 mg FEEDTUBE QPM BOBBY Heparin Sodium (Porcine) (Heparin) 5,000 unit SUB-Q Q12HR BOBBY Levofloxacin/Dextrose (Levaquin 750mg/150ml) 750 mg in 150 mls @ 100 mls/hr IV ONCE ONE Stop: 07/07/17 11:44 Last Admin: 07/07/17 11:07 Dose: 100 mls/hr Levofloxacin/Dextrose (Levaquin 750mg/150ml) 750 mg in 150 mls @ 100 mls/hr IV Q48H BOBBY PRN Reason: Protocol Piperacillin Sod/Tazobactam Sod (Zosyn/Ns 2.25 Gm/50ml) 2.25 gm in 50 mls @ 100 mls/hr IV Q8HR BOBBY PRN Reason: Protocol Dextrose (D5w) 1,000 mls @ 100 mls/hr IV DIRECT BOBBY Vancomycin HCl 1,250 mg/ (Sodium Chloride) 262.5 mls @ 166.667 mls/hr IV Q24H BOBBY Metoclopramide HCl (Reglan) 10 mg IV Q8H PRN PRN Reason: Nausea And Vomiting Miscellaneous Medication (Memantine Xr) 14 mg FEEDTUBE DAILY BOBBY Miscellaneous Medication (Omeprazole [Prilosec]) 20 mg FEEDTUBE QDAY BOBBY Miscellaneous Medication (Valproic Acid (As Sodium Salt) [Valproic Acid]) 125 mg FEEDTUBE BID BOBBY Pantoprazole Sodium (Protonix) 40 mg PO QDAY BOBBY Scopolamine (Transderm-Scop) 1 each TD Q3D BOBBY Simvastatin (Zocor) 10 mg FEEDTUBE QHS BOBBY Vancomycin HCl (Vancomycin Pharmacy To Dose) 1 each IV PKCONSULT BOBBY PRN Reason: Protocol Verapamil HCl (Calan) 120 mg FEEDTUBE BID BOBBY Review of Systems ROS unobtainable: due to mental status Exam - Vital Signs Vital signs: Vital Signs Temp Pulse Resp BP Pulse Ox 99.0 F 105 H 26 H 123/73 88 07/07/17 08:42 07/07/17 08:42 07/07/17 08:42 07/07/17 08:42 07/07/17 08:42 - Physical Exam Narrative exam: GEN chronically debilitated but acutely ill-appearing, somnolent, will moan to manipulation and pain, HEENT: NCAT, eomi and pupils do react NECK: Neck is flexed down but supple no adenopathy, no thyromegaly, no JVD CVS/HEART: Regular tachycardia NORMAL S1S2, NO JVD, pulses present bilaterally CHEST/LUNGS: Bilateral crackles Symmetrical chest expansion, reduced air entry bilaterally GI/Abdomen: soft, NTND, good bowel sounds, no guarding or rebound, PEG tube in place /Bladder: no suprapubic tenderness, no CVA or paraspinal tenderness EXT/Skin: No foot at the open heeled pressure ulcer, she has pressures ulcer left knee , stage 3 MSK: Contractures 4 Neuro: CN 2-12 grossly intact, does not follow commands Psych: Somnolent Results - Lab Results 07/07/17 08:59 07/07/17 08:59 Most recent lab results Calcium 10.1 mg/dL (8.4-10.2) 07/07/17 08:59 Assessment and Plan Impression: * yuri * volume depletion * uncontrolled DM * Hypernatremia * HTN * PNA Plan: * free h20 and d5w for na * daily lytes * strict i/os * sepsis workup * iv abx per primary team * strict i/os * avoid nephrotoxins * d/w daughter at bedside
[2017-07-07] MEDS: TRANSDERM-SCOP TD SCH (11:52)
[2017-07-07] MEDS ORDERED: VANCOMYCIN 1,250 MG in NACL 0.9% 250ML 250 ML IV SCH (12:00)
--- NOTE | 2017-07-07 12:40 | Ultrasound Report ---
RENAL ULTRASOUND: 07/07/17 11:42:00 CLINICAL: Renal failure. FINDINGS: High resolution ultrasound demonstrated poorly imaged kidneys with nondilated renal collecting systems. Image quality is degraded by body habitus and limited mobility of the patient. Moderate increased echogenicity of the kidneys and bilateral renal cortical irregularity and thinning. No renal mass, cyst or calculus identified. The right kidney measures 9.7 x 4.2 x 4.5-cm. The renal parenchyma measures 1.6-cm in thickness. The left kidney measures 8.9 x 5.4 x 4.3-cm. The renal parenchyma measures 1.3-cm in thickness. The urinary bladder was not identified. 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
[2017-07-07] MEDS: NAMENDA FEEDTUBE SCH (13:30)
[2017-07-07] MEDS ORDERED: ZOSYN/NS 2.25 GM/50ML 2.25 GM/50 ML BAG IV SCH ×2 (14:00→22:00)
[2017-07-07] MEDS ORDERED: D50W (25GM) Syringe IV PRN (14:26)
[2017-07-07] MEDS ORDERED: D50W (25GM) Vial IV PRN (14:39)
[2017-07-07] MEDS: NOVOLOG SUB-Q SCH ×2 (14:47→20:00)
[2017-07-07] MEDS ORDERED: NOVOLOG SUB-Q ONE (14:49)
[2017-07-07] MEDS ORDERED: NON-FORMULARY (Lovastatin [Altoprev] 20 MG) FEEDTUBE SCH (18:00)
[2017-07-07] MEDS: ARICEPT FEEDTUBE SCH (21:11)
[2017-07-07] MEDS ORDERED: VALPROIC ACID 125 MG FEEDTUBE SCH (22:00)
[2017-07-08] MEDS: ZOCOR FEEDTUBE SCH ×2 (00:19→22:40)
[2017-07-08] MEDS: CALAN FEEDTUBE SCH ×2 (00:21→09:45)
[2017-07-08] MEDS: ZOSYN/NS 2.25 GM/50ML 2.25 GM/50 ML BAG IV SCH ×4 (00:21→17:00)
[2017-07-08] MEDS: NOVOLOG SUB-Q SCH ×4 (00:55→18:59)
[2017-07-08 04:47] LABS: Hematocrit 38.2 % (30.3-42.9); Hemoglobin 11.9 gm/dl (10.1-14.3); Mean Corpuscular HGB Conc 31 % (30-34); Mean Corpuscular Hemoglobin 32 pg (28-32); Mean Corpuscular Volume 102 fl (79-97); Platelet Count 196 K/mm3 (140-440); Red Blood Count 3.76 M/mm3 (3.65-5.03); White Blood Count 15.7 K/mm3 (4.5-11.0)
[2017-07-08 05:10] LABS: Calcium 10.4 mg/dL (8.4-10.2); Chloride 128.8 mmol/L (98-107); Magnesium 2.1 mg/dL (1.7-2.3); Potassium 3.7 mmol/L (3.6-5.0)
[2017-07-08] MEDS: HEPARIN SUB-Q SCH ×2 (09:44→22:40)
[2017-07-08] MEDS: PROTONIX FEEDTUBE SCH (09:45)
[2017-07-08] MEDS: NAMENDA FEEDTUBE SCH (09:46)
[2017-07-08] MEDS ORDERED: NON-FORMULARY (Omeprazole [Prilosec] 20 MG) FEEDTUBE SCH (10:00)
[2017-07-08] MEDS ORDERED: PROTONIX PO SCH (10:00)
[2017-07-08] MEDS ORDERED: MEMANTINE 14 MG FEEDTUBE SCH (10:00)
[2017-07-08] MEDS ORDERED: SIMPLE SYRUP FEEDTUBE PRN ×2 (11:01)
[2017-07-08] MEDS ORDERED: PANCREAZE DR 10,500 UNIT FEEDTUBE PRN (11:01)
[2017-07-08] MEDS ORDERED: SODIUM BICARBONATE FEEDTUBE PRN (11:01)
--- NOTE | 2017-07-08 11:23 | Progress Note ---
Assessment and Plan Impression: * yuri * volume depletion * uncontrolled DM * Hypernatremia * HTN * PNA Plan: * free h20 and d5w for na * daily lytes * strict i/os * sepsis workup * iv abx per primary team * strict i/os * avoid nephrotoxins * d/w daughter at bedside Subjective Date of service: 07/08/17 Principal diagnosis: hypernatremia Interval history: resting well in bed today Objective - Exam Narrative Exam: GEN chronically debilitated but acutely ill-appearing, somnolent, will moan to manipulation and pain, HEENT: NCAT, eomi and pupils do react NECK: Neck is flexed down but supple no adenopathy, no thyromegaly, no JVD CVS/HEART: Regular tachycardia NORMAL S1S2, NO JVD, pulses present bilaterally CHEST/LUNGS: Bilateral crackles Symmetrical chest expansion, reduced air entry bilaterally GI/Abdomen: soft, NTND, good bowel sounds, no guarding or rebound, PEG tube in place /Bladder: no suprapubic tenderness, no CVA or paraspinal tenderness EXT/Skin: No foot at the open heeled pressure ulcer, she has pressures ulcer left knee , stage 3 MSK: Contractures 4 Neuro: CN 2-12 grossly intact, does not follow commands Psych: Somnolent - Vital Signs Vital signs: Vital Signs - 12hr 07/08/17 07/08/17 07/08/17 00:21 01:45 04:20 Temperature 97.5 F L Pulse Rate 92 H 89 Respiratory 16 20 Rate Blood Pressure 108/53 Blood Pressure 115/55 [Left] O2 Sat by Pulse 96 99 Oximetry 07/08/17 09:45 Temperature Pulse Rate 92 H Respiratory Rate Blood Pressure 146/65 Blood Pressure [Left] O2 Sat by Pulse Oximetry - Lab 07/08/17 04:16 07/08/17 04:16 Most recent lab results Calcium 10.4 mg/dL (8.4-10.2) H 07/08/17 04:16 Magnesium 2.10 mg/dL (1.7-2.3) 07/08/17 04:16
[2017-07-08] MEDS ORDERED: VANCOMYCIN 1,250 MG in NACL 0.9% 250ML 250 ML IV SCH (12:40)
[2017-07-08] MEDS: ARICEPT FEEDTUBE SCH (17:00)
--- NOTE | 2017-07-08 17:02 | Progress Note ---
Assessment and Plan Assessment and plan: Patient is a 89-year-old woman from [facility] with a history of end -stage co- morbidities including advanced dementia, functional quadriplegia, contractures, bedbound state, GERD, hypertension, PEG tube, depression and pressure ulcers who presents with worsening altered mental status and uncontrolled blood sugars. Chest X-ray shows new right upper lobe pneumonia versus atelectasis, mild cardiomegaly but no CHF. -Acute hypoxic respiratory failure due to pneumonia: Treat with oxygen, IV vanc and zosyn -Right upper lobe aspiration pneumonia: Broad-spectrum and double cover for pseudomonas because of recent hospitalizations, renal dose -Sepsis pneumonia with lactic acidosis; will treat the underlying cause -Acute metabolic encephalopathy due to above and severe dementia: Treat above -Uncontrolled type 2 diabetes mellitus with hyperglycemia: As slightly scaly assessment consult dietitian, patient on tube feedings -Acute renal failure due to vasomotor nephropathy: Nephrology consulted -Hypernatremia: Treat with D5 W, and free water flushes to PEG tube also consult nephrology, repeat in a.m. -Suspected severe malnutrition: Consult dietitian -Functional quadriplegia due to severe end-stage dementia: Supportive care -Pressure ulcers present on admission: Consult wound care -DVT prophylaxis: Subcutaneous heparin -GI prophylaxis: PPI DO NOT RESUSCITATE Prognosis: Guarding History Interval history: Patient was seen and evaluated this morning, patient has severe dementia and is not able to communicate. Hospitalist Physical - Physical exam Narrative exam: Not in cardiopulmonary distress. The patient appeared obese. Vital signs as documented. Head exam is unremarkable. No scleral icterus . Neck is without jugular venous distension, thyromegaly, or carotid bruits. Lungs are clear to auscultation. Cardiac exam reveals regular rate and Rhythm. Abdominal exam reveals normal bowel sounds, PEG tube in place. Extremities contracted. Skin decubitus ulcer. 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 - Constitutional Vitals: Temp Pulse Resp BP Pulse Ox 97.3 F L 88 20 112/47 97 07/08/17 14:00 07/08/17 14:00 07/08/17 14:00 07/08/17 14:00 07/08/17 14:00 Results - Labs CBC & Chem 7: 07/08/17 04:16 07/08/17 04:16 Labs: Laboratory Last Values WBC 15.7 K/mm3 (4.5-11.0) H 07/08/17 04:16 RBC 3.76 M/mm3 (3.65-5.03) 07/08/17 04:16 Hgb 11.9 gm/dl (10.1-14.3) 07/08/17 04:16 Hct 38.2 % (30.3-42.9) 07/08/17 04:16 MCV 102 fl (79-97) H 07/08/17 04:16 MCH 32 pg (28-32) 07/08/17 04:16 MCHC 31 % (30-34) 07/08/17 04:16 RDW 15.0 % (13.2-15.2) 07/08/17 04:16 Plt Count 196 K/mm3 (140-440) 07/08/17 04:16 Lymph % (Auto) 7.6 % (13.4-35.0) L 07/07/17 08:59 [place] % (Auto) 4.7 % (0.0-7.3) 07/07/17 08:59 Eos % (Auto) 0.0 % (0.0-4.3) 07/07/17 08:59 Baso % (Auto) 0.2 % (0.0-1.8) 07/07/17 08:59 Lymph # 1.2 K/mm3 (1.2-5.4) 07/07/17 08:59 [place] # 0.7 K/mm3 (0.0-0.8) 07/07/17 08:59 Eos # 0.0 K/mm3 (0.0-0.4) 07/07/17 08:59 Baso # 0.0 K/mm3 (0.0-0.1) 07/07/17 08:59 Seg Neutrophils % 87.5 % (40.0-70.0) H 07/07/17 08:59 Seg Neutrophils # 13.5 K/mm3 (1.8-7.7) H 07/07/17 08:59 PT 16.6 Sec. (12.2-14.9) H 07/07/17 08:59 INR 1.28 (0.87-1.13) H 07/07/17 08:59 APTT 36.3 Sec. (24.2-36.6) 07/07/17 08:59 VBG pH 7.387 (7.320-7.420) 07/07/17 08:59 Sodium 175 mmol/L (137-145) H* D 07/08/17 04:16 Potassium 3.7 mmol/L (3.6-5.0) 07/08/17 04:16 Chloride 128.8 mmol/L (98-107) H 07/08/17 04:16 Carbon Dioxide 30 mmol/L (22-30) 07/08/17 04:16 Anion Gap 20 mmol/L 07/08/17 04:16 BUN 44 mg/dL (7-17) H 07/08/17 04:16 Creatinine 1.6 mg/dL (0.7-1.2) H 07/08/17 04:16 Estimated GFR 37 ml/min 07/08/17 04:16 BUN/Creatinine Ratio 28 % 07/08/17 04:16 Glucose 212 mg/dL (65-100) H 07/08/17 04:16 POC Glucose 176 (70-105) H 07/08/17 11:43 Lactic Acid 3.10 mmol/L (0.7-2.0) H* 07/07/17 14:01 Calcium 10.4 mg/dL (8.4-10.2) H 07/08/17 04:16 Magnesium 2.10 mg/dL (1.7-2.3) 07/08/17 04:16 Total Bilirubin 0.40 mg/dL (0.1-1.2) 07/07/17 08:59 AST 12 units/L (5-40) 07/07/17 08:59 ALT 10 units/L (7-56) 07/07/17 08:59 Alkaline Phosphatase 139 units/L (35-129) H 07/07/17 08:59 Total Creatine Kinase 39 units/L (30-135) 07/07/17 08:59 CK-MB (CK-2) 2.0 ng/mL (0.0-4.0) 07/07/17 08:59 CK-MB (CK-2) Rel Index 5.1 (0-4) H 07/07/17 08:59 Troponin T 0.082 ng/mL (0.00-0.029) H 07/07/17 08:59 Total Protein 7.9 g/dL (6.3-8.2) 07/07/17 08:59 Albumin 2.8 g/dL (3.9-5) L 07/07/17 08:59 Albumin/Globulin Ratio 0.5 % 07/07/17 08:59 Triglycerides 106 mg/dL (2-149) 07/07/17 08:59 Cholesterol 128 mg/dL (50-199) 07/07/17 08:59 LDL Cholesterol Direct 53 mg/dL (50-130) 07/07/17 08:59 HDL Cholesterol 54 mg/dL (40-59) 07/07/17 08:59 Cholesterol/HDL Ratio 2.37 % 07/07/17 08:59 Urine Color Yellow (Yellow) 07/07/17 08:54 Urine Turbidity Clear (Clear) 07/07/17 08:54 Urine pH 7.0 (5.0-7.0) 07/07/17 08:54 Ur Specific [place] 1.025 (1.003-1.030) 07/07/17 08:54 Urine Protein 100 mg/dl mg/dL (Negative) 07/07/17 08:54 Urine Glucose (UA) >=500 mg/dL (Negative) 07/07/17 08:54 Urine Ketones Neg mg/dL (Negative) 07/07/17 08:54 Urine Blood Neg (Negative) 07/07/17 08:54 Urine Nitrite Neg (Negative) 07/07/17 08:54 Urine Bilirubin Neg (Negative) 07/07/17 08:54 Urine Urobilinogen < 2.0 mg/dL (<2.0) 07/07/17 08:54 Ur Leukocyte Esterase Neg (Negative) 07/07/17 08:54 Urine WBC (Auto) 1.0 /HPF (0.0-6.0) 07/07/17 08:54 Urine RBC (Auto) < 1.0 /HPF (0.0-6.0) 07/07/17 08:54 U Epithel Cells (Auto) < 1.0 /HPF (0-13.0) 07/07/17 08:54 Urine Bacteria (Auto) 1+ /HPF (Negative) 07/07/17 08:54 Urine Mucus Few /HPF 07/07/17 08:54 Hypernatremia
[2017-07-08 18:03] LABS: Calcium 9.9 mg/dL (8.4-10.2); Chloride 117.9 mmol/L (98-107); Potassium 3.9 mmol/L (3.6-5.0)
[2017-07-09] MEDS: ZOSYN/NS 2.25 GM/50ML 2.25 GM/50 ML BAG IV SCH ×4 (00:23→17:10)
[2017-07-09] MEDS: CALAN FEEDTUBE SCH ×3 (00:24→22:28)
[2017-07-09] MEDS: NOVOLOG SUB-Q SCH ×4 (00:27→17:27)
[2017-07-09] MEDS: D5W 1,000 ML IV SCH ×3 (00:28→22:28)
[2017-07-09 00:32] LABS: Calcium 9.7 mg/dL (8.4-10.2); Chloride 121.1 mmol/L (98-107)
[2017-07-09 00:51] LABS: Potassium 4.5 mmol/L (3.6-5.0)
[2017-07-09 04:43] LABS: Basophils % (Auto) 0.9 % (0.0-1.8); Eosinophils % (Auto) 1.9 % (0.0-4.3); Hematocrit 35.7 % (30.3-42.9); Hemoglobin 11.6 gm/dl (10.1-14.3); Mean Corpuscular HGB Conc 32 % (30-34); Mean Corpuscular Hemoglobin 32 pg (28-32); Mean Corpuscular Volume 99 fl (79-97); Platelet Count 184 K/mm3 (140-440); Red Blood Count 3.62 M/mm3 (3.65-5.03); Red Cell Distribution Width 14.8 % (13.2-15.2); White Blood Count 11.5 K/mm3 (4.5-11.0)
[2017-07-09 05:18] LABS: Calcium 9.5 mg/dL (8.4-10.2); Chloride 122.5 mmol/L (98-107)
--- NOTE | 2017-07-09 08:44 | Progress Note ---
Assessment and Plan Assessment and plan: Patient is a 89-year-old woman from [facility] with a history of multiple comorbidities including advanced dementia, functional quadriplegia, contractures, bedbound state, GERD, hypertension, PEG tube, depression and pressure ulcers who presents with worsening altered mental status and uncontrolled blood sugars. Acute hypoxic respiratory failure due to right upper lobe aspiration pneumonia - Chest x-ray right upper lobe pneumonia versus atelectasis - Blood culture positive for gram-negative rods, pending sensitivity, patient is on IV vancomycin and Levaquin Sepsis pneumonia with lactic acidosis secondary to pneumonia - Continue current management Acute metabolic encephalopathy due to above and severe dementia - Treat underlying cause and supportive care Uncontrolled type 2 diabetes mellitus with hyperglycemia - Patient is on sliding scale insulin and I added basal insulin - We will monitor Acute renal failure due to vasomotor nephropathy - Nephrology consulted - Creatinine this morning is 1.6 Hypernatremia - Treat with D5 W, and free water flushes to PEG tube also consult nephrology - Improving sodium this morning is 159 Suspected severe malnutrition -Consult dietitian Functional quadriplegia due to severe end-stage dementia - Supportive care Pressure ulcers present on admission -Consult wound care DVT prophylaxis: Subcutaneous heparin GI prophylaxis: PPI DO NOT RESUSCITATE Prognosis: Guarding History Interval history: Patient was seen and evaluated this morning, patient has severe dementia and was not able to communicate. Hospitalist Physical - Physical exam Narrative exam: Not in cardiopulmonary distress. The patient appeared obese. Vital signs as documented. Head exam is unremarkable. No scleral icterus . Neck is without jugular venous distension, thyromegaly, or carotid bruits. Lungs are clear to auscultation. Cardiac exam reveals regular rate and Rhythm. Abdominal exam reveals normal bowel sounds, PEG tube in place. Extremities contracted. Skin decubitus ulcer. 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 - Constitutional Vitals: Temp Pulse Resp BP Pulse Ox 98.5 F 88 20 119/49 100 07/09/17 05:00 07/09/17 07:18 07/09/17 05:00 07/09/17 05:00 07/09/17 05:00 Results - Labs CBC & Chem 7: 07/09/17 04:26 07/09/17 04:26 Labs: Laboratory Last Values WBC 11.5 K/mm3 (4.5-11.0) H 07/09/17 04:26 RBC 3.62 M/mm3 (3.65-5.03) L 07/09/17 04:26 Hgb 11.6 gm/dl (10.1-14.3) 07/09/17 04:26 Hct 35.7 % (30.3-42.9) 07/09/17 04:26 MCV 99 fl (79-97) H 07/09/17 04:26 MCH 32 pg (28-32) 07/09/17 04:26 MCHC 32 % (30-34) 07/09/17 04:26 RDW 14.8 % (13.2-15.2) 07/09/17 04:26 Plt Count 184 K/mm3 (140-440) 07/09/17 04:26 Lymph % (Auto) 17.8 % (13.4-35.0) 07/09/17 04:26 [place] % (Auto) 6.4 % (0.0-7.3) 07/09/17 04:26 Eos % (Auto) 1.9 % (0.0-4.3) 07/09/17 04:26 Baso % (Auto) 0.9 % (0.0-1.8) 07/09/17 04:26 Lymph # 2.0 K/mm3 (1.2-5.4) 07/09/17 04:26 [place] # 0.7 K/mm3 (0.0-0.8) 07/09/17 04:26 Eos # 0.2 K/mm3 (0.0-0.4) 07/09/17 04:26 Baso # 0.1 K/mm3 (0.0-0.1) 07/09/17 04:26 Seg Neutrophils % 73.0 % (40.0-70.0) H 07/09/17 04:26 Seg Neutrophils # 8.4 K/mm3 (1.8-7.7) H 07/09/17 04:26 PT 16.6 Sec. (12.2-14.9) H 07/07/17 08:59 INR 1.28 (0.87-1.13) H 07/07/17 08:59 APTT 36.3 Sec. (24.2-36.6) 07/07/17 08:59 VBG pH 7.387 (7.320-7.420) 07/07/17 08:59 Sodium 159 mmol/L (137-145) H 07/09/17 04:26 Potassium 4.0 mmol/L (3.6-5.0) 07/09/17 04:26 Chloride 122.5 mmol/L (98-107) H 07/09/17 04:26 Carbon Dioxide 27 mmol/L (22-30) 07/09/17 04:26 Anion Gap 16 mmol/L 07/09/17 04:26 BUN 51 mg/dL (7-17) H 07/09/17 04:26 Creatinine 1.6 mg/dL (0.7-1.2) H 07/09/17 04:26 Estimated GFR 37 ml/min 07/09/17 04:26 BUN/Creatinine Ratio 32 % 07/09/17 04:26 Glucose 230 mg/dL (65-100) H 07/09/17 04:26 POC Glucose 241 (70-105) H 07/08/17 22:37 Lactic Acid 3.10 mmol/L (0.7-2.0) H* 07/07/17 14:01 Calcium 9.5 mg/dL (8.4-10.2) 07/09/17 04:26 Magnesium 2.10 mg/dL (1.7-2.3) 07/08/17 04:16 Total Bilirubin 0.40 mg/dL (0.1-1.2) 07/07/17 08:59 AST 12 units/L (5-40) 07/07/17 08:59 ALT 10 units/L (7-56) 07/07/17 08:59 Alkaline Phosphatase 139 units/L (35-129) H 07/07/17 08:59 Total Creatine Kinase 39 units/L (30-135) 07/07/17 08:59 CK-MB (CK-2) 2.0 ng/mL (0.0-4.0) 07/07/17 08:59 CK-MB (CK-2) Rel Index 5.1 (0-4) H 07/07/17 08:59 Troponin T 0.082 ng/mL (0.00-0.029) H 07/07/17 08:59 Total Protein 7.9 g/dL (6.3-8.2) 07/07/17 08:59 Albumin 2.8 g/dL (3.9-5) L 07/07/17 08:59 Albumin/Globulin Ratio 0.5 % 07/07/17 08:59 Triglycerides 106 mg/dL (2-149) 07/07/17 08:59 Cholesterol 128 mg/dL (50-199) 07/07/17 08:59 LDL Cholesterol Direct 53 mg/dL (50-130) 07/07/17 08:59 HDL Cholesterol 54 mg/dL (40-59) 07/07/17 08:59 Cholesterol/HDL Ratio 2.37 % 07/07/17 08:59 Urine Color Yellow (Yellow) 07/07/17 08:54 Urine Turbidity Clear (Clear) 07/07/17 08:54 Urine pH 7.0 (5.0-7.0) 07/07/17 08:54 Ur Specific [place] 1.025 (1.003-1.030) 07/07/17 08:54 Urine Protein 100 mg/dl mg/dL (Negative) 07/07/17 08:54 Urine Glucose (UA) >=500 mg/dL (Negative) 07/07/17 08:54 Urine Ketones Neg mg/dL (Negative) 07/07/17 08:54 Urine Blood Neg (Negative) 07/07/17 08:54 Urine Nitrite Neg (Negative) 07/07/17 08:54 Urine Bilirubin Neg (Negative) 07/07/17 08:54 Urine Urobilinogen < 2.0 mg/dL (<2.0) 07/07/17 08:54 Ur Leukocyte Esterase Neg (Negative) 07/07/17 08:54 Urine WBC (Auto) 1.0 /HPF (0.0-6.0) 07/07/17 08:54 Urine RBC (Auto) < 1.0 /HPF (0.0-6.0) 07/07/17 08:54 U Epithel Cells (Auto) < 1.0 /HPF (0-13.0) 07/07/17 08:54 Urine Bacteria (Auto) 1+ /HPF (Negative) 07/07/17 08:54 Urine Mucus Few /HPF 07/07/17 08:54 Blood culture positive for negative rods
[2017-07-09] MEDS: PROTONIX FEEDTUBE SCH (09:01)
[2017-07-09] MEDS: NAMENDA FEEDTUBE SCH (09:01)
[2017-07-09] MEDS: HEPARIN SUB-Q SCH ×2 (09:02→22:29)
--- NOTE | 2017-07-09 09:56 | Progress Note ---
Assessment and Plan Impression: * yuri * volume depletion * uncontrolled DM * Hypernatremia * HTN * PNA Plan: * free h20 and d5w for na * daily lytes * strict i/os * sepsis workup * na improving * follow up vanco levels * cr is stable today * iv abx per primary team * strict i/os * avoid nephrotoxins Subjective Date of service: 07/09/17 Principal diagnosis: hypernatremia Interval history: resting well in bed today Objective - Exam Narrative Exam: GEN chronically debilitated but acutely ill-appearing, somnolent, will moan to manipulation and pain, HEENT: NCAT, eomi and pupils do react NECK: Neck is flexed down but supple no adenopathy, no thyromegaly, no JVD CVS/HEART: Regular tachycardia NORMAL S1S2, NO JVD, pulses present bilaterally CHEST/LUNGS: Bilateral crackles Symmetrical chest expansion, reduced air entry bilaterally GI/Abdomen: soft, NTND, good bowel sounds, no guarding or rebound, PEG tube in place /Bladder: no suprapubic tenderness, no CVA or paraspinal tenderness EXT/Skin: No foot at the open heeled pressure ulcer, she has pressures ulcer left knee , stage 3 MSK: Contractures 4 Neuro: CN 2-12 grossly intact, does not follow commands Psych: Somnolent - Vital Signs Vital signs: Vital Signs - 12hr 07/08/17 07/09/17 07/09/17 21:57 00:24 05:00 Temperature 98.8 F 98.5 F Pulse Rate 89 89 88 Respiratory 18 20 Rate Blood Pressure 109/68 Blood Pressure 109/68 119/49 [Left] O2 Sat by Pulse 98 100 Oximetry 07/09/17 07/09/17 07/09/17 07:18 09:00 09:12 Temperature 98.9 F Pulse Rate 88 109 H 109 H Respiratory 20 Rate Blood Pressure 128/76 Blood Pressure 128/76 [Left] O2 Sat by Pulse 96 Oximetry - Lab 07/09/17 04:26 07/09/17 04:26 Most recent lab results Calcium 9.5 mg/dL (8.4-10.2) 07/09/17 04:26 Magnesium 2.10 mg/dL (1.7-2.3) 07/08/17 04:16
[2017-07-09] MEDS: LEVEMIR SUB-Q SCH ×2 (11:00→22:29)
[2017-07-09] MEDS: LEVAQUIN 750MG/150ML 750 MG/150 ML BAG IV SCH (11:02)
--- NOTE | 2017-07-09 12:28 | XRay Report ---
AP CHEST: HISTORY: Dyspnea Slightly limited exam with the patient's hand overlying the right lower lobe. Heart size is within normal limits. Pulmonary venous congestion has resolved since 07/07/17. There is hazy right perihilar opacity which could represent segmental atelectasis although infiltrate could be considered. The remaining lungs are clear. No large pleural effusion or pneumothorax. IMPRESSION: Right perihilar opacity as described.
[2017-07-09 14:46] LABS: Calcium 9.2 mg/dL (8.4-10.2); Chloride 111.5 mmol/L (98-107); Potassium 3.1 mmol/L (3.6-5.0)
[2017-07-09] MEDS: ARICEPT FEEDTUBE SCH (17:10)
[2017-07-09] MEDS: XALATAN 0.005% OU SCH (17:11)
[2017-07-09] MEDS: ZOCOR FEEDTUBE SCH (22:29)
[2017-07-10] MEDS: ZOSYN/NS 2.25 GM/50ML 2.25 GM/50 ML BAG IV SCH ×5 (01:03→23:15)
[2017-07-10] MEDS: NOVOLOG SUB-Q SCH ×4 (01:05→18:52)
[2017-07-10 05:47] LABS: Hematocrit 29.8 % (30.3-42.9); Hemoglobin 10.3 gm/dl (10.1-14.3); Mean Corpuscular HGB Conc 35 % (30-34); Mean Corpuscular Hemoglobin 33 pg (28-32); Mean Corpuscular Volume 96 fl (79-97); Platelet Count 170 K/mm3 (140-440); Red Blood Count 3.11 M/mm3 (3.65-5.03); Red Cell Distribution Width 14.6 % (13.2-15.2); White Blood Count 9.7 K/mm3 (4.5-11.0)
[2017-07-10 06:12] LABS: Calcium 8.6 mg/dL (8.4-10.2); Chloride 107.9 mmol/L (98-107); Potassium 3.4 mmol/L (3.6-5.0)
[2017-07-10 06:16] LABS: Calcium 8.7 mg/dL (8.4-10.2); Chloride 108.2 mmol/L (98-107)
--- NOTE | 2017-07-10 10:00 | Progress Note ---
Assessment and Plan Impression: * yuri * volume depletion * uncontrolled DM * Hypernatremia * HTN * PNA Plan: * free h20 and d5w for na * add kcl * daily lytes * strict i/os * sepsis workup * na improving * follow up vanco levels * cr is stable today * iv abx per primary team * strict i/os * avoid nephrotoxins Subjective Date of service: 07/10/17 Principal diagnosis: hypernatremia Interval history: resting well in bed today Objective - Exam Narrative Exam: GEN chronically debilitated but acutely ill-appearing, somnolent, will moan to manipulation and pain, HEENT: NCAT, eomi and pupils do react NECK: Neck is flexed down but supple no adenopathy, no thyromegaly, no JVD CVS/HEART: Regular tachycardia NORMAL S1S2, NO JVD, pulses present bilaterally CHEST/LUNGS: Bilateral crackles Symmetrical chest expansion, reduced air entry bilaterally GI/Abdomen: soft, NTND, good bowel sounds, no guarding or rebound, PEG tube in place /Bladder: no suprapubic tenderness, no CVA or paraspinal tenderness EXT/Skin: No foot at the open heeled pressure ulcer, she has pressures ulcer left knee , stage 3 MSK: Contractures 4 Neuro: CN 2-12 grossly intact, does not follow commands Psych: Somnolent - Vital Signs Vital signs: Vital Signs - 12hr 07/09/17 07/09/17 07/10/17 22:00 22:28 04:00 Temperature Pulse Rate 84 87 Respiratory 20 20 Rate Blood Pressure 120/58 Blood Pressure 152/64 [Right] O2 Sat by Pulse 97 Oximetry 07/10/17 08:17 Temperature 99.2 F Pulse Rate 98 H Respiratory 20 Rate Blood Pressure Blood Pressure 113/68 [Right] O2 Sat by Pulse 96 Oximetry - Lab 07/10/17 04:26 07/10/17 04:26 Most recent lab results Calcium 8.7 mg/dL (8.4-10.2) 07/10/17 04:26 Magnesium 2.10 mg/dL (1.7-2.3) 07/08/17 04:16
[2017-07-10] MEDS: NAMENDA FEEDTUBE SCH (10:06)
[2017-07-10] MEDS: CALAN FEEDTUBE SCH ×2 (10:12→23:15)
[2017-07-10] MEDS: LEVEMIR SUB-Q SCH ×2 (10:13→23:17)
[2017-07-10] MEDS: HEPARIN SUB-Q SCH ×2 (10:13→23:16)
[2017-07-10] MEDS: PROTONIX FEEDTUBE SCH (10:13)
[2017-07-10] MEDS ORDERED: KCL 10MEQ/100ML 10 MEQ/100 ML BAG IV SCH (11:00)
[2017-07-10] MEDS: TRANSDERM-SCOP TD SCH (12:55)
[2017-07-10] MEDS: D5W 1,000 ML with KCL 20 MEQ IV SCH (13:48)
--- NOTE | 2017-07-10 14:14 | Progress Note ---
Assessment and Plan Assessment and Plan Assessment and plan: Patient is a 89-year-old woman from [facility] with a history of multiple comorbidities including advanced dementia, functional quadriplegia, contractures, bedbound state, GERD, hypertension, PEG tube, depression and pressure ulcers who presents with worsening altered mental status and uncontrolled blood sugars. Acute hypoxic respiratory failure due to right upper lobe aspiration pneumonia - Chest x-ray right upper lobe pneumonia versus atelectasis --improved - Blood culture positive for gram-negative rods, pending sensitivity, patient is on IV vancomycin and Levaquin Sepsis pneumonia with lactic acidosis secondary to pneumonia - Continue current management Acute metabolic encephalopathy due to above and severe dementia - Treat underlying cause and supportive care Uncontrolled type 2 diabetes mellitus with hyperglycemia - Patient is on sliding scale insulin and I added basal insulin - We will monitor Acute renal failure due to vasomotor nephropathy - Nephrology consulted - BUN/Cr 51/1.6 to 45/1.6 today Hypernatremia - Treat with D5 W, and free water flushes to PEG tube also consult nephrology - Improving sodium this morning is 146 from 159 Suspected severe malnutrition Functional quadriplegia due to severe end-stage dementia - Supportive care Pressure ulcers present on admission -Consult wound care DVT prophylaxis: Subcutaneous heparin GI prophylaxis: PPI DO NOT RESUSCITATE Prognosis: Guarding Disposition -Transfer back to [facility]/[place] once Sodium is in normal limits And Bun/cr near normal Subjective Date of service: 07/10/17 Principal diagnosis: hypernatremia,Renal failure Interval history: Resting comfortably.Afebrile Objective - Constitutional Vitals: Vital Signs - 12hr 07/10/17 07/10/17 07/10/17 04:00 08:17 10:12 Temperature 99.2 F Pulse Rate 87 98 H 101 H Respiratory 20 20 Rate Blood Pressure 135/66 Blood Pressure 152/64 113/68 [Right] O2 Sat by Pulse 97 96 Oximetry General appearance: Present: no acute distress, well-nourished - EENT Eyes: PERRL, EOM intact ENT: hearing intact, clear oral mucosa Ears: bilateral: normal - Neck Neck: supple, normal ROM - Respiratory Respiratory effort: normal Respiratory: bilateral: CTA - Breasts Breasts: normal - Cardiovascular Heart rate: 80 Rhythm: regular Heart Sounds: Present: S1 & S2. Absent: gallop, rub Extremities: pulses intact, No edema, normal color, Full ROM - Gastrointestinal General gastrointestinal: Present: soft, non-tender, non-distended, normal bowel sounds - Genitourinary Female genitourinary: normal - Integumentary Integumentary: clear, warm, dry - Musculoskeletal Musculoskeletal: 1, strength equal bilaterally - Neurologic Neurologic: moves all extremities, other - Psychiatric Psychiatric: other (Dementia ++) - Allied health notes Allied health notes reviewed: nursing, case management - Labs CBC & Chem 7: 07/10/17 04:26 07/11/17 04:05 Labs: Abnormal lab results 07/09/17 07/09/17 07/10/17 Range/Units 13:46 17:28 01:05 RBC (3.65-5.03) M/mm3 Hct (30.3-42.9) % MCH (28-32) pg MCHC (30-34) % Sodium 153 H (137-145) mmol/L Potassium 3.1 L D (3.6-5.0) mmol/L Chloride 111.5 H (98-107) mmol/L BUN 48 H (7-17) mg/dL Creatinine 1.4 H (0.7-1.2) mg/dL Glucose 199 H (65-100) mg/dL POC Glucose 198 H 256 H (70-105) 07/10/17 07/10/17 07/10/17 Range/Units 04:26 04:26 04:26 RBC 3.11 L (3.65-5.03) M/mm3 Hct 29.8 L (30.3-42.9) % MCH 33 H (28-32) pg MCHC 35 H (30-34) % Sodium 148 H 146 H (137-145) mmol/L Potassium 3.0 L 3.4 L (3.6-5.0) mmol/L Chloride 108.2 H 107.9 H (98-107) mmol/L BUN 45 H 45 H (7-17) mg/dL Creatinine 1.6 H 1.6 H (0.7-1.2) mg/dL Glucose 137 H 139 H (65-100) mg/dL POC Glucose (70-105) 07/10/17 Range/Units 12:07 RBC (3.65-5.03) M/mm3 Hct (30.3-42.9) % MCH (28-32) pg MCHC (30-34) % Sodium (137-145) mmol/L Potassium (3.6-5.0) mmol/L Chloride (98-107) mmol/L BUN (7-17) mg/dL Creatinine (0.7-1.2) mg/dL Glucose (65-100) mg/dL POC Glucose 188 H (70-105)
[2017-07-10] MEDS: XALATAN 0.005% OU SCH (18:02)
[2017-07-10] MEDS: ARICEPT FEEDTUBE SCH (18:51)
[2017-07-10] MEDS: ZOCOR FEEDTUBE SCH (23:16)
[2017-07-11] MEDS: NOVOLOG SUB-Q SCH ×3 (01:02→12:20)
[2017-07-11] MEDS ORDERED: KCL 20 MEQ in D5W 1,000 ML IV SCH (02:15)
[2017-07-11] MEDS: D5W 1,000 ML with KCL 20 MEQ IV SCH ×2 (02:47→02:52)
[2017-07-11] MEDS: ZOSYN/NS 2.25 GM/50ML 2.25 GM/50 ML BAG IV SCH ×2 (05:17→11:30)
[2017-07-11 05:21] LABS: Calcium 8.5 mg/dL (8.4-10.2)
[2017-07-11 05:22] LABS: Chloride 103.2 mmol/L (98-107); Potassium 4.4 mmol/L (3.6-5.0)
--- NOTE | 2017-07-11 10:30 | Progress Note ---
Assessment and Plan Impression: * yuri * volume depletion * uncontrolled DM * Hypernatremia * HTN * PNA Plan: * free h20 and 09/18 * k is normal * daily lytes * strict i/os * sepsis workup * na improved * follow up vanco levels * cr is stable today * iv abx per primary team * strict i/os * avoid nephrotoxins * stable from renal standpoint Subjective Date of service: 07/11/17 Principal diagnosis: hypernatremia,Renal failure Interval history: resting well in bed today Objective - Exam Narrative Exam: GEN chronically debilitated but acutely ill-appearing, somnolent, will moan to manipulation and pain, HEENT: NCAT, eomi and pupils do react NECK: Neck is flexed down but supple no adenopathy, no thyromegaly, no JVD CVS/HEART: Regular tachycardia NORMAL S1S2, NO JVD, pulses present bilaterally CHEST/LUNGS: Bilateral crackles Symmetrical chest expansion, reduced air entry bilaterally GI/Abdomen: soft, NTND, good bowel sounds, no guarding or rebound, PEG tube in place /Bladder: no suprapubic tenderness, no CVA or paraspinal tenderness EXT/Skin: No foot at the open heeled pressure ulcer, she has pressures ulcer left knee , stage 3 MSK: Contractures 4 Neuro: CN 2-12 grossly intact, does not follow commands Psych: Somnolent - Vital Signs Vital signs: Vital Signs - 12hr 07/11/17 07/11/17 04:59 08:00 Temperature 99.8 F H 99.2 F Pulse Rate 114 H 94 H Respiratory 24 20 Rate Blood Pressure 113/58 108/54 [Right] O2 Sat by Pulse 97 99 Oximetry - Lab 07/10/17 04:26 07/11/17 04:05 Most recent lab results Calcium 8.5 mg/dL (8.4-10.2) 07/11/17 04:05 Magnesium 2.10 mg/dL (1.7-2.3) 07/08/17 04:16
[2017-07-11] MEDS: LEVEMIR SUB-Q SCH (11:00)
[2017-07-11] MEDS ORDERED: NACL 0.45% 1000 ML 1,000 ML IV SCH (11:00)
[2017-07-11] MEDS: NAMENDA FEEDTUBE SCH (11:00)
[2017-07-11] MEDS: CALAN FEEDTUBE SCH (11:00)
[2017-07-11] MEDS: PROTONIX FEEDTUBE SCH (11:00)
[2017-07-11] MEDS: HEPARIN SUB-Q SCH (11:00)
--- NOTE | 2017-07-11 11:33 | Discharge Summary ---
Providers - Providers Date of Admission: 07/07/17 10:55 Date of discharge: 07/11/17 Attending physician: RICKIE DOUGHERTY MD 07/07/17 10:58 Consult to Dietitian/Nutrition [CONS] Routine Physician Instructions: Reason For Exam: Reason for Consult: Write/Manage Tube Feeding 07/07/17 11:01 Consult to Physician [CONS] Routine Consulting Provider: HEAVEN PENA Reason For Exam: arf, severe hypernatremia and has peg Place consult to:: NEPHRO Notified:: Y Was contact made?: Yes If yes, spoke with:: A/S JADA Time called:: 11:05 07/08/17 03:27 Consult to Wound/ET Nurse [CONS] Routine Reason For Exam: wound eval Primary care physician: STEFANI GONZALEZ Hospitalization Reason for admission: RUL Pneumonia, dehydration Condition: Stable Disposition: [id number]/[place]-[id number] SN[facility] Time spent for discharge: 31 minutes - Discharge Diagnoses (1) Acute renal insufficiency Status: Acute (2) Elevated lactic acid level Status: Acute (3) Hypernatriuria Status: Acute (4) Dementia Status: Chronic Qualifiers: Dementia type: D Alzheimer's disease onset: A Dementia behavioral disturbance: D (5) Aspiration pneumonia Status: Acute Qualifiers: Aspiration pneumonia type: A Laterality: L Lung location: L (6) Do not resuscitate Status: Chronic Core Measure Documentation - Palliative Care Palliative Care/ Comfort Measures: Not Applicable - Core Measures Any of the following diagnoses?: none Exam - Physical Exam Narrative exam: Not in cardiopulmonary distress. The patient appeared obese. Vital signs as documented. Head exam is unremarkable. No scleral icterus . Neck is without jugular venous distension, thyromegaly, or carotid bruits. Lungs are clear to auscultation. Cardiac exam reveals regular rate and Rhythm. Abdominal exam reveals normal bowel sounds, PEG tube in place. Extremities contracted. Skin decubitus ulcer. NURSE ORTHOPEDIC: Severe dementia. - Constitutional Vitals: Temp Pulse Resp BP Pulse Ox 99.2 F 94 H 20 108/54 99 07/11/17 08:00 07/11/17 08:00 07/11/17 08:00 07/11/17 08:00 07/11/17 08:00 Plan Activity: fall precautions Weight Bearing Status: Non-Weight Bearing Diet: per dietitian instruction Follow up with: STEFANI GONZALEZ MD [Primary Care Provider] - 3-5 Days Prescriptions: Levofloxacin [Levaquin] 750 mg PO Q48H #7 tablet
[2017-07-11] MEDS: LEVAQUIN 750MG/150ML 750 MG/150 ML BAG IV SCH (11:39)
[2017-07-11 13:39] VITALS: BP 104/53
== END 2017-07-11 13:45 | DRG 871 ==
LOC: ED 08:38 → 3A 10:55 → CC2 20:39
PROVIDERS: ADMIT Internal Medicine; ATTEND Internal Medicine
DX: A41.9 Sepsis, unspecified organism (principal); J69.0 Pneumonitis due to inhalation of food and vomit; J96.01 Acute respiratory failure with hypoxia; G93.41 Metabolic encephalopathy; R53.2 Functional quadriplegia; N17.0 Acute kidney failure with tubular necrosis; E87.0 Hyperosmolality and hypernatremia; E11.65 Type 2 diabetes mellitus with hyperglycemia; F03.90 Unspecified dementia, unspecified severity, without behavioral disturbance, psychotic disturbance, mood disturbance, and anxiety; Z66 Do not resuscitate; K21.9 Gastro-esophageal reflux disease without esophagitis; I10 Essential (primary) hypertension; F32.9 Major depressive disorder, single episode, unspecified; E86.0 Dehydration; L89.90 Pressure ulcer of unspecified site, unspecified stage; Z79.899 Other long term (current) drug therapy; Z74.01 Bed confinement status; Z93.1 Gastrostomy status
CPT/HCPCS: 36415; 71010; 76770; 80048; 80053; 80061; 80202; 81001; 82140; 82550; 82553; 82805; 82962; 83735; 84484; 85025; 85027; 85610; 85730; 87040; 87076; 87086; 93005; 93010; 96361; 96365; 96366; 96367; 96372; 96375; J1644; J1815; J1818; J1956; J2543; J3370; J3480; J7040; J7050; J7070

== ENCOUNTER 2017-07-28 09:26 | Emergency (ER) | payer MEDICARE ==
[2017-07-28] MEDS ORDERED: NACL 0.9% 500 ML 500 ML IV ONE (09:46)
[2017-07-28] MEDS ORDERED: SUBLIMAZE IM ONE (10:12)
--- NOTE | 2017-07-28 10:14 | Emergency Department Report ---
ED General Adult HPI - General Chief complaint: Dyspnea/Respdistress Stated complaint: DIFFICULTY BREATHING Time Seen by Provider: 07/28/17 10:00 Source: family, EMS (verbal report received from EMS.ems notes not available at time of chart dictation), RN notes reviewed, old records reviewed Mode of arrival: Stretcher Limitations: Altered Mental Status, Physical Limitation - History of Present Illness Initial comments: This is an 89-year-old female. Her primary care doctor is Dr. Angel Hooper. She is a [facility] resident with a history of dementia, functional quadriplegia, contractures, bedbound, GERD, hypertension, PEG tube, depression, pressure ulcers. The patient is brought to the hospital by EMS for respiratory distress. The patient is altered and obtunded. She is not able to provide any additional history. The patient cannot describe exacerbating or relieving factors. EMS indicates the patient is DO NOT RESUSCITATE, DO NOT INTUBATE. Upon arrival to the ER, the patient was tachycardic, in severe respiratory distress. She was found to be hypothermic with a core temperature of 93. Her enclosed [facility] paperwork was reviewed, and confirmed recently signed DO NOT RESUSCITATE. I contacted the patient's son, Mr. John Ayala. I explained the patient's poor prognosis and current situation. He does not want the patient to be admitted. He does not want a central line. He does not want an IV, antibiotics. He wants pain medication and comfort care measures. He requested the patient be transferred to hospice. I involved the case management personnel, JEREMY HILL, who has evaluated the patient in conjunction with myself, and made arrangements for the patient to go to hospice as per her family's wishes. Given advanced age, multiple medical comorbidities, multiple recent hospitalizations, aggressive medical management is non-conduction with this patient's family's goals of care, and likely cause more harm and pain than medical benefit. This was explained to the patient's son verbalizes understanding. -: unknown Consistency: constant Improves with: none Worsens with: none Associated Symptoms: confusion, shortness of breath, weakness - Related Data Home Medications Medication Instructions Recorded Confirmed Last Taken Donepezil [Aricept] 10 mg FEEDTUBE QPM 08/22/14 07/09/17 10/02/14 Lovastatin [Altoprev] 20 mg FEEDTUBE QPM 08/22/14 07/09/17 10/01/14 Memantine Xr [Namenda Xr] 5 mg FEEDTUBE DAILY 08/22/14 07/09/17 10/02/14 Multivit-Minerals/Ferrous Fum 5 ml FEEDTUBE DAILY 08/22/14 07/09/17 10/02/14 [Multivitamin Liquid] Omeprazole [PriLOSEC] 20 mg FEEDTUBE QDAY 08/22/14 07/09/17 10/02/14 Vit C/Ascorbate Calcium,Sodium 500 mg FEEDTUBE BID 08/22/14 07/09/17 10/02/14 [Vitamin C 500 mg/15 ml Liquid] Acetaminophen [Acetaminophen TAB] 2 tab FEEDTUBE Q8H PRN MDD 3000MG 02/26/17 Unknown Hyoscyamine Subl [Levsin Sl 0.125 2 tab PO Q6H PRN 02/26/17 07/09/17 Unknown TAB] Loperamide [Imodium] 2 mg PO PRN PRN MDD 4 capsules 02/26/17 07/09/17 Unknown Sennosides [Senna] 1 tab FEEDTUBE Q12H 02/26/17 07/09/17 Unknown Sodium Chloride 1 gm FEEDTUBE BID 02/26/17 07/09/17 Unknown Valproic Acid (As Sodium Salt) 125 mg FEEDTUBE BID 02/26/17 07/09/17 Unknown [Valproic Acid] Verapamil [Calan] 120 mg FEEDTUBE BID 02/26/17 07/09/17 Unknown clonazePAM [KlonoPIN] 0.25 mg PO BID 02/26/17 07/09/17 Unknown fentaNYL [Fentanyl] 12 mcg TRANSDERMA Q72H 02/26/17 07/09/17 Unknown Maxzide-25 37.5 mg FEEDTUBE DAILY 05/17/17 07/09/17 Unknown Middleton 5-325 mg TAB 5 - 325 mg FEEDTUBE Q8HR 05/17/17 07/09/17 Unknown Scopolamine [Transderm-Scop] 1 each TD Q3D 05/17/17 07/09/17 Unknown Glycopyrrolate [Robinul Forte] 2 mg FEEDTUBE BID 07/09/17 07/09/17 Unknown Loratadine [Claritin] 10 mg FEEDTUBE DAILY 07/09/17 07/09/17 Unknown Travatan Z 0.004% 1 drop OU HS 07/09/17 07/09/17 Unknown Zofran ORAL LIQ 4 mg FEEDTUBE Q6H PRN 07/09/17 07/09/17 Unknown predniSONE [predniSONE Oral Liq] 5 mg FEEDTUBE QDAY MDD X 10 days 07/09/1707/09 Unknown Previous Rx's Medication Instructions Recorded Last Taken Type Levofloxacin [Levaquin] 750 mg PO Q48H #7 tablet 07/11/17 Unknown Rx Allergies Allergy/AdvReac Type Severity Reaction Status Date / Time No Known Allergies Allergy Verified 06/17/17 22:14 ED Review of Systems ROS: Stated complaint: DIFFICULTY BREATHING Other details as noted in HPI Comment: Unobtainable due to pts medical conditions ED Past Medical Hx - Past Medical History Previous Medical History?: Yes Hx Hypertension: Yes Hx Congestive Heart Failure: Yes Hx Diabetes: Yes Hx GERD: Yes Hx Arthritis: Yes Hx Psychiatric Treatment: Yes (alzheimers, dementia, major depressive d/o) Hx Dementia: Yes Hx HIV: No Additional medical history: dysphagia,hypokalemia, glaucoma. pressure ulcer left foot. aphasia, GERD, hyperlipidemia, contracture of the knee, constipation. recent pneumonia - Surgical History Past Surgical History?: Yes Additional Surgical History: PEG - Social History Smoking Status: Unknown if ever smoked - Medications Home Medications: Home Medications Medication Instructions Recorded Confirmed Last Taken Type Donepezil [Aricept] 10 mg FEEDTUBE QPM 08/22/14 07/09/17 10/02/14 History Lovastatin [Altoprev] 20 mg FEEDTUBE QPM 08/22/14 07/09/17 10/01/14 History Memantine Xr [Namenda Xr] 5 mg FEEDTUBE DAILY 08/22/14 07/09/17 10/02/14 History Multivit-Minerals/Ferrous Fum 5 ml FEEDTUBE DAILY 08/22/14 07/09/17 10/02/14 History [Multivitamin Liquid] Omeprazole [PriLOSEC] 20 mg FEEDTUBE QDAY 08/22/14 07/09/17 10/02/14 History Vit C/Ascorbate Calcium,Sodium 500 mg FEEDTUBE BID 08/22/14 07/09/17 10/02/14 History [Vitamin C 500 mg/15 ml Liquid] Acetaminophen [Acetaminophen TAB] 2 tab FEEDTUBE Q8H PRN MDD 3000MG 02/26/17 Unknown History Hyoscyamine Subl [Levsin Sl 0.125 2 tab PO Q6H PRN 02/26/17 07/09/17 Unknown History TAB] Loperamide [Imodium] 2 mg PO PRN PRN MDD 4 capsules 02/26/17 07/09/17 Unknown History Sennosides [Senna] 1 tab FEEDTUBE Q12H 02/26/17 07/09/17 Unknown History Sodium Chloride 1 gm FEEDTUBE BID 02/26/17 07/09/17 Unknown History Valproic Acid (As Sodium Salt) 125 mg FEEDTUBE BID 02/26/17 07/09/17 Unknown History [Valproic Acid] Verapamil [Calan] 120 mg FEEDTUBE BID 02/26/17 07/09/17 Unknown History clonazePAM [KlonoPIN] 0.25 mg PO BID 02/26/17 07/09/17 Unknown History fentaNYL [Fentanyl] 12 mcg TRANSDERMA Q72H 02/26/17 07/09/17 Unknown History Maxzide-25 37.5 mg FEEDTUBE DAILY 05/17/17 07/09/17 Unknown History Middleton 5-325 mg TAB 5 - 325 mg FEEDTUBE Q8HR 05/17/17 07/09/17 Unknown History Scopolamine [Transderm-Scop] 1 each TD Q3D 05/17/17 07/09/17 Unknown History Glycopyrrolate [Robinul Forte] 2 mg FEEDTUBE BID 07/09/17 07/09/17 Unknown History Loratadine [Claritin] 10 mg FEEDTUBE DAILY 07/09/17 07/09/17 Unknown History Travatan Z 0.004% 1 drop OU HS 07/09/17 07/09/17 Unknown History Zofran ORAL LIQ 4 mg FEEDTUBE Q6H PRN 07/09/17 07/09/17 Unknown History predniSONE [predniSONE Oral Liq] 5 mg FEEDTUBE QDAY MDD X 10 days 07/09/1707/09 Unknown History Levofloxacin [Levaquin] 750 mg PO Q48H #7 tablet 07/11/17 Unknown Rx ED Physical Exam - General Limitations: Altered Mental Status, Physical Limitation General appearance: lethargic, in distress - Head Head exam: Present: normocephalic - Eye Eye exam: Absent: periorbital swelling, periorbital tenderness - ENT ENT exam: Present: mucous membranes dry - Neck Neck exam: Present: full ROM - Respiratory Respiratory exam: Present: respiratory distress, rales, rhonchi - Cardiovascular Cardiovascular Exam: Present: tachycardia - GI/Abdominal GI/Abdominal exam: Present: soft, other (feeding tube was noted in the left hemiabdomen) - Rectal Rectal exam: Present: normal inspection - External exam: Present: normal external exam - Extremities Exam Extremities exam: Present: other (patient has contractures.) - Back Exam Back exam: Absent: paraspinal tenderness - Neurological Exam Neurological exam: Present: altered - Psychiatric Psychiatric exam: Present: agitated - Skin Skin exam: Present: dry ED Course Vital Signs 07/28/17 07/28/17 07/28/17 09:34 09:45 10:34 Temperature 93.9 F L Pulse Rate 129 H 128 H 144 H Respiratory 36 H 41 H Rate Blood Pressure 127/42 Blood Pressure 144/127 [Left] O2 Sat by Pulse 86 90 Oximetry 07/28/17 07/28/17 07/28/17 11:53 13:15 14:08 Temperature Pulse Rate 142 H 104 H 85 Respiratory 42 H 17 6 L Rate Blood Pressure Blood Pressure 145/86 [Left] O2 Sat by Pulse 94 Oximetry 07/28/17 14:21 Temperature Pulse Rate 0 L Respiratory 0 L Rate Blood Pressure Blood Pressure 0/0 [Left] O2 Sat by Pulse 0 L Oximetry - Reevaluation(s) Reevaluation #1: 07/28/17 14:47 Patient . Family at bedside. Family informed. ED Medical Decision Making - Medical Decision Making Differential diagnosis, including but not limited to: Sepsis, pneumonia, urinary tract infection, respiratory failure Critical care attestation.: If time is entered above; I have spent that time in minutes in the direct care of this critically ill patient, excluding procedure time. ED Disposition Clinical Impression: Do not resuscitate, Respiratory distress, Hypothermia Disposition: DC-20 Is pt being admited?: No Does the pt Need Aspirin: No Condition: Undetermined Referrals: PRIMARY CARE, [Primary Care Provider] - 3-5 Days
[2017-07-28 14:22] VITALS: BP 0/0
== END 2017-07-28 14:25 ==
LOC: ED 09:26
DX: R68.0 Hypothermia, not associated with low environmental temperature (principal); R06.00 Dyspnea, unspecified; I10 Essential (primary) hypertension; I50.9 Heart failure, unspecified; E11.9 Type 2 diabetes mellitus without complications; K21.9 Gastro-esophageal reflux disease without esophagitis; F03.90 Unspecified dementia, unspecified severity, without behavioral disturbance, psychotic disturbance, mood disturbance, and anxiety
CPT/HCPCS: 96372; 99285; J3010